=== PATIENT | male | born 1970 | race American Indian/Alaskan Native ===

== ENCOUNTER 2016-05-21 13:08 | Emergency (ER) | payer MEDICAID ==
--- NOTE | 2016-05-21 14:35 | Emergency Department Report ---
Chief Complaint: High BP Stated Complaint: HIGH BP Time Seen by Provider: 05/21/16 14:29 - HPI History of Present Illness: 46 y/o male complain of headache x 3 days .pt state that he taking blood pressure medication without any relief .pt denies any n/v .pt complain of fatigue.pt complain of left arm pain .denies any injury . - ROS Review of Systems: per HPI - Exam Vital Signs: Vital Signs 05/21/16 14:19 Temperature 98.4 F Pulse Rate 105 H Respiratory 18 Rate Blood Pressure 185/119 O2 Sat by Pulse 98 Oximetry Physical Exam: GENERAL: The patient is well-developed and well-nourished. Patient is in NAD. HENT: Normocephalic. Atraumatic. Patient has moist mucous membranes. Throat: No erythema, swelling or exudates. EYES: Extraocular motions are intact, PERRL NECK: Supple. No meningitic signs are noted. There is no adenopathy noted. CHEST/LUNGS: Clear to auscultation bilaterally. No wheezing, rales or rhonchi noted. There is no respiratory distress noted. HEART/CARDIOVASCULAR: Regular rate and rhythm. Normal S1 S2. No murmurs, rubs , clicks, or gallops. ABDOMEN: Abdomen is soft, nontender.. Bowel sounds normoactive. There is no abdominal distention. Negative rebound tenderness. : Deferred. SKIN: There is no rash. There is no edema. There is no diaphoresis. NEURO: The patient is A&Ox3. The patient has no focal neurologic deficits. MUSCULOSKELETAL: There is no tenderness or deformity. There is no limitation range of motion. PSYCH: Pt has appropriate mood and affect. MSE screening note: Focused history and physical exam performed. Due to findings the following was ordered: ED Disposition for MSE Condition: Stable
[2016-05-21 16:05] LABS: Bilirubin,Urine NEG (Negative); Blood,Urine NEG (Negative); Ketones,Urine NEG (Negative); Leukocyte Esterase,Urine NEG (Negative); Mucus,Urine FEW /HPF; Nitrite,Urine NEG (Negative); Urobilinogen,Urine < 2.0 mg/dL (<2.0)
[2016-05-21] MEDS ORDERED: MORPHINE IV ONE (16:19)
--- NOTE | 2016-05-21 16:25 | Emergency Department Report ---
HPI - General Chief Complaint: High BP Time Seen by Provider: 05/21/16 16:04 - HPI HPI: This is a 46-year-old Afro-[place] male who presents to the emergency department, dropped off by a friend, with complaint of a one-week history of a frontal headache. Patient has also had some uncontrolled blood pressure despite taking his medications compliantly. He says that his primary care doctor switched his blood pressure meds about 1 week ago and it does not seem to be working. He has some associated left arm pain from the shoulder down to the mid forearm but he denies any chest pain, shortness of breath, fever, nausea , vomiting, vision change, slurred speech or any neurological deficits. His been taking some Tylenol for his headache without much relief. Denies any history of AK, CVA, PE/DVT. No recent travel or sick contacts at home. ED Past Medical Hx - Past Medical History Hx Hypertension: Yes Hx Diabetes: Yes (pre diabetic) Hx Arthritis: Yes Hx Headaches / Migraines: Yes Additional medical history: degenerative disc disease - Surgical History Additional Surgical History: left total knee replacement. c6 c7 appliance - Social History Smoking Status: Current Every Day Smoker Substance Use Type: Alcohol - Medications Home Medications: Home Medications Medication Instructions Recorded Confirmed Last Taken Type Calcium Carbonate [Calcium] 500 mg PO QDAY 04/06/13 05/21/16 3 Months Ago History Hydrocodone Bit/Acetaminophen 1 each PO TID PRN 04/06/13 05/21/16 3 Months Ago History [Lortab 7.5-500 Tablet] Lisinopril [Zestril] 5 mg PO QDAY 04/06/13 05/21/16 3 Months Ago History Butalbit/Acetamin/Caff/Codeine 1 each PO Q4-6H PRN #14 capsule 10/26/1310/04/15 Rx [Fioricet-Cod 59-294-12-30 Cap] predniSONE [Deltasone] 50 mg PO QDAY #4 tab 05/17/14 05/21/16 3 Months Ago Rx traMADol [Ultram] 50 mg PO Q6HR PRN #20 tablet 08/30/14 05/21/16 3 Months Ago Rx methOCARBAMOL [Robaxin TAB] 500 mg PO BID #20 tab 06/05/15 05/21/16 3 Months Ago Rx ED Review of Systems ROS: Stated complaint: HIGH BP Other details as noted in HPI Comment: All other systems reviewed and negative Constitutional: denies: chills, fever Eyes: denies: eye pain, eye discharge, vision change ENT: denies: ear pain, throat pain Respiratory: denies: cough, shortness of breath, wheezing Cardiovascular: denies: chest pain, palpitations Gastrointestinal: denies: abdominal pain, nausea, diarrhea Genitourinary: denies: urgency, dysuria Musculoskeletal: denies: back pain, joint swelling Skin: denies: rash, lesions Neurological: headache. denies: weakness, numbness, paresthesias Physical Exam - Physical Exam Vital Signs: Vital Signs 05/21/16 14:19 Temperature 98.4 F Pulse Rate 105 H Respiratory 18 Rate Blood Pressure 185/119 O2 Sat by Pulse 98 Oximetry Physical Exam: GENERAL: The patient is well-developed well-nourished. HEENT: Normocephalic. Atraumatic. Extraocular motions are intact. Patient has moist mucous membranes. Pupils equal reactive to light bilaterally. No nystagmus. NECK: Supple. Trachea is midline. CHEST/LUNGS: Clear to auscultation. There is no respiratory distress noted. HEART/CARDIOVASCULAR: Regular. There is no tachycardia. There is no gallop rub or murmur. ABDOMEN: Abdomen is soft, nontender. Patient has normal bowel sounds. There is no abdominal distention. SKIN: There is no rash. There is no edema. There is no diaphoresis. NEURO: The patient is awake, alert, and oriented. The patient is cooperative. The patient has no focal neurologic deficits. The patient has normal speech. Cranial nerves II through XII grossly intact. No pronator drift. MUSCULOSKELETAL: Mild tenderness to palpation along the right de souza but no obvious deformity. There is no limitation range of motion. There is no evidence of acute injury. Muscle strength 5 out of 5 for upper and lower extremity bilaterally. ED Course Vital Signs 05/21/16 14:19 Temperature 98.4 F Pulse Rate 105 H Respiratory 18 Rate Blood Pressure 185/119 O2 Sat by Pulse 98 Oximetry ED Medical Decision Making - Lab Data Result diagrams: 05/21/16 16:31 05/21/16 16:31 - EKG Data -: EKG Interpreted by Me EKG shows normal: sinus rhythm, axis, intervals, QRS complexes (Q waves to the inferior leads), ST-T waves Rate: normal - EKG Data When compared to previous EKG there are: previous EKG unavailable Interpretation: other (sinus rhythm, Q waves to the inferior leads) - Radiology Data Radiology results: report reviewed, image reviewed interpreted by me: X-ray of the right tibia and fibula does not show any fracture or dislocation or any acute process. CT of the head does not show any acute process including no hemorrhage, mass, shift, diffuse edema or skull fracture. - Medical Decision Making 46-year-old male presents to the emergency department from his PCPs office with complaint of uncontrolled blood pressure, some tachycardia and a one week long history of a headache. CT of the head was done that does not show any bleed, shift, mass or any acute process. Patient's vitals do show very elevated blood pressure but there is only a mild amount of tachycardia through triage and patient is afebrile. He does not display any focal, motor or sensory deficits. Cranial nerves intact. No signs of stroke. Patient's EKG does not show any signs of ST elevation AK or dysrhythmia. The rest the patient's labs and unremarkable. He was given 1 dose of pain medication which did help with his headache, and a few doses of blood pressure medications which brought his blood pressure down to a much more reasonable level. After the blood pressure came down the patient's that he started feeling better. Patient admitted that he had drank a few energy and/or caffeinated sports drinks that may have been part of his issues. We discussed staying with foods are high in salt and caffeinated products. He will follow-up with Dr. Quezada in the next few days and Dr. Quezada has been updated about the patient's ED course. - Differential Diagnosis hypertensive urgency/crisis, migraine, brain bleed, tension headache Critical Care Time: No Critical care attestation.: If time is entered above; I have spent that time in minutes in the direct care of this critically ill patient, excluding procedure time. ED Disposition Clinical Impression: Hypertensive urgency Headache Qualifiers: Headache type: unspecified Headache chronicity pattern: episodic headache Intractability: not intractable Qualified Code(s): R51 - Headache Disposition: DISCHARGED TO HOME OR SELFCARE Is pt being admited?: No Condition: Stable Instructions: Hypertension (ED), Acute Headache (ED) Additional Instructions: Please follow-up with your primary care doctor in the next few days. Continue with your blood pressure regimen. Try to stay away from foods that are high in salt and caffeinated products to assist with your elevated blood pressure. Return to the emergency department with any worsening of your symptoms or any acute distress. Referrals: EDDIE QUEZADA MD [Staff Physician] - 3-5 Days Time of Disposition: 18:30
[2016-05-21 16:46] LABS: Eosinophils % (Auto) 3.4 % (0.0-4.3); Hematocrit 43.9 % (35.5-45.6); Hemoglobin 14.4 gm/dl (11.8-15.2); Mean Corpuscular HGB Conc 33 % (32-34); Mean Corpuscular Hemoglobin 29 pg (28-32); Mean Corpuscular Volume 87 fl (84-94); Platelet Count 213 K/mm3 (140-440); Red Blood Count 5.05 M/mm3 (3.65-5.03); Red Cell Distribution Width 13.9 % (13.2-15.2); White Blood Count 6.7 K/mm3 (4.5-11.0)
[2016-05-21 17:08] LABS: Creatine Kinase MB 4.8 ng/mL (0.0-4.0)
[2016-05-21 17:09] LABS: Alanine Aminotransferase 28 units/L (7-56); Albumin 3.7 g/dL (3.9-5); Albumin/Globulin Ratio 1.1 %; Alkaline Phosphatase 94 units/L (35-129); Anion Gap 19 mmol/L; BUN/Creatinine Ratio 15.55; Bilirubin,Total 0.3 mg/dL (0.1-1.2); Blood Urea Nitrogen 14 mg/dL (9-20); Calcium 8.8 mg/dL (8.4-10.2); Carbon Dioxide 24 mmol/L (22-30); Chloride 98.3 mmol/L (98-107); Creatine Kinase 865 units/L (55-170); Glucose 104 mg/dL (75-100); Potassium 3.7 mmol/L (3.6-5.0); Sodium 138 mmol/L (137-145)
--- NOTE | 2016-05-21 17:14 | Cat Scan Report ---
FINAL REPORT PROCEDURE: CT HEAD/BRAIN WO CON TECHNIQUE: Computerized tomography of the head was performed without contrast material. 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 FINDINGS: The visualized portions of the paranasal sinuses are clear. Mastoid air cells are clear. There is no calvarial fracture. There is no hydrocephalus. No acute intracranial hemorrhage or mass effect is seen. There is no evidence of acute CVA. IMPRESSION: No abnormalities are seen.
[2016-05-21] MEDS ORDERED: NORMODYNE IV ONE ×2 (17:19→18:43)
[2016-05-21] MEDS ORDERED: APRESOLINE IV ONE (19:27)
[2016-05-21 19:52] VITALS: BP 148/89
--- NOTE | 2016-05-22 08:32 | XRay Report ---
Right tibia: There is generalized edema of the soft tissues. There is focal swelling that is more accentuated over the lateral malleolus. Scattered small phleboliths are identified in the distal leg. There are no fractures and no displacements. The bones appear relatively well-mineralized. There are some scattered hypertrophic changes involving the ankle joint. Impressions: Nonspecific swelling. No acute bony findings.
== END 2016-05-21 19:55 | disposition home or self-care (01) ==
LOC: ED 13:08
DX: I10 Essential (primary) hypertension (principal); R51 Headache
CPT/HCPCS: 36415; 70450; 73590; 80053; 81001; 82550; 82553; 84484; 85025; 96374; 96375; 96376; 99285; J0360; J2270; 93005; 93010

== ENCOUNTER 2019-02-21 03:36 | Inpatient (IN) | payer MEDICAID ==
[2019-02-21] MEDS ORDERED: MORPHINE IV ONE ×2 (04:10→05:23)
--- NOTE | 2019-02-21 04:12 | Emergency Department Report ---
ED Chest Pain HPI - General Chief Complaint: Chest Pain Stated Complaint: CHEST PAIN Time Seen by Provider: 02/21/19 03:49 Source: patient, EMS Mode of arrival: Stretcher Limitations: No Limitations - History of Present Illness Initial Comments: 49-year-old -[place] male presents to the emergency department via EMS from home with complaint of some sharp midsternal chest pain that has been going on since Friday, 24 hours ago. At first it went away but he says that it "came right back." It is associated with some mild shortness of breath. He denies any fever, nausea, vomiting, back pain or diaphoresis. He is a tobacco smoker but denies any illicit drug use. He has not taken anything for her symptoms prior to presentation. He has a past medical history of hypertension and "stomach problems." He goes to [facility] for primary care. 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 - Related Data Home Medications Medication Instructions Recorded Confirmed Last Taken Calcium Carbonate [Calcium] 500 mg PO QDAY 04/06/13 11/04/16 3 Months Ago ~02/19/16 Previous Rx's Medication Instructions Recorded Last Taken Type Butalbit/Acetamin/Caff/Codeine 1 each PO Q4-6H PRN #14 capsule 10/26/13 10/04/15 Rx [Fioricet/Codeine 87-181-62-30] Aspirin EC [Halfprin EC] 81 mg PO QDAY #30 tablet 11/07/16 Unknown Rx AtorvaSTATin [Lipitor] 20 mg PO QHS #30 tab 11/07/16 Unknown Rx Clopidogrel [Plavix] 75 mg PO QDAY #30 tablet 11/07/16 Unknown Rx ISOSORBIDE MONOnitrate [Imdur ER] 30 mg PO DAILY #30 tab.er.24h 11/07/16 Unknown Rx Lisinopril [Zestril TAB] 40 mg PO QDAY #30 tablet 11/07/16 Unknown Rx Metoprolol [Lopressor TAB] 50 mg PO BID #60 tablet 11/07/16 Unknown Rx Allergies Allergy/AdvReac Type Severity Reaction Status Date / Time aspirin AdvReac Nausea Verified 09/09/13 08:02 Heart Score - HEART Score History: Slightly suspicious EKG: Normal Age: 45-65 Risk factors: 1-2 risk factors Troponin: < normal limit HEART Score: 2 - Critical Actions Critical Actions: 0-3 pts:0.9-1.7%risk of adverse cardiac event.Candidate for discharge ED Review of Systems ROS: Stated complaint: CHEST PAIN Other details as noted in HPI Comment: All other systems reviewed and negative Constitutional: denies: chills, fever Eyes: denies: eye pain, vision change ENT: denies: ear pain, throat pain Respiratory: shortness of breath. denies: cough Cardiovascular: chest pain. denies: palpitations Gastrointestinal: denies: abdominal pain, vomiting Genitourinary: denies: dysuria, discharge Musculoskeletal: denies: back pain, arthralgia Skin: denies: rash, lesions Neurological: denies: headache, weakness ED Past Medical Hx - Past Medical History Hx Hypertension: Yes Hx Heart Attack/AMI: Yes (2017) Hx Congestive Heart Failure: No Hx Diabetes: Yes (pre diabetic) Hx Deep Vein Thrombosis: Yes Hx Arthritis: Yes Hx Headaches / Migraines: Yes Hx Asthma: No Hx COPD: No Additional medical history: degenerative disc disease, AF - Surgical History Additional Surgical History: left total knee replacement. c6 c7 appliance. knee surgery scope - Social History Smoking Status: Current Every Day Smoker - Medications Home Medications: Home Medications Medication Instructions Recorded Confirmed Last Taken Type Calcium Carbonate [Calcium] 500 mg PO QDAY 04/06/13 11/04/16 3 Months Ago History ~02/19/16 Butalbit/Acetamin/Caff/Codeine 1 each PO Q4-6H PRN #14 capsule 10/26/13 11/04/16 10/04/15 Rx [Fioricet/Codeine 95-136-21-30] Aspirin EC [Halfprin EC] 81 mg PO QDAY #30 tablet 11/07/16 Unknown Rx AtorvaSTATin [Lipitor] 20 mg PO QHS #30 tab 11/07/16 Unknown Rx Clopidogrel [Plavix] 75 mg PO QDAY #30 tablet 11/07/16 Unknown Rx ISOSORBIDE MONOnitrate [Imdur ER] 30 mg PO DAILY #30 tab.er.24h 11/07/16 Unknown Rx Lisinopril [Zestril TAB] 40 mg PO QDAY #30 tablet 11/07/16 Unknown Rx Metoprolol [Lopressor TAB] 50 mg PO BID #60 tablet 11/07/16 Unknown Rx ED Physical Exam - General Limitations: No Limitations - Other Other exam information: GENERAL: The patient is well-developed well-nourished. HENT: Normocephalic. Atraumatic. Patient has moist mucous membranes. EYES: Extraocular motions are intact. NECK: Supple. Trachea is midline. CHEST/LUNGS: Clear to auscultation. There is no respiratory distress noted. HEART/CARDIOVASCULAR: Regular. There is no tachycardia. There is no murmur. ABDOMEN: Abdomen is soft, nontender. Patient has normal bowel sounds. There is no abdominal distention. SKIN: Skin is warm and dry. NEURO: The patient is awake, alert, and oriented. The patient is cooperative. The patient has no focal neurologic deficits. Normal speech. MUSCULOSKELETAL: There is no tenderness or deformity. There is no evidence of acute injury. ED Course Vital Signs 02/21/19 02/21/19 02/21/19 03:49 03:57 04:00 Temperature 98.2 F Pulse Rate 67 Respiratory 24 24 Rate Blood Pressure 134/95 O2 Sat by Pulse 99 Oximetry KENIA score - Kenia Score Age > 65: (0) No Aspirin use within the Past 7 Days: (0) No 3 or more CAD Risk Factors: (1) Yes 2 or more Angina events in past 24 hrs: (0) No Known CAD with more than 50% Stenosis: (0) No Elevated Cardiac Markers: (0) No ST Deviation Greater than 0.5mm: (1) Yes KENIA Score: 2 ED Medical Decision Making - Lab Data Result diagrams: 02/21/19 03:50 02/21/19 03:50 - EKG Data -: EKG Interpreted by [facility] EKG shows normal: sinus rhythm, axis, intervals, QRS complexes, ST-T waves Rate: normal - EKG Data When compared to previous EKG there are: previous EKG unavailable Interpretation: normal EKG - Radiology Data Radiology results: image reviewed interpreted by hi: Chest x-ray does not show any acute process. There are no pleural effusions, obvious pneumonia and there is no pneumothorax. - Medical Decision Making This patient presents with sharp midsternal to left-sided chest pain that started yesterday but worsened today. EKG does not show any signs of ST elevation [place]. Labs are unremarkable so far including a negative troponin and negative d-dimer. Chest x-ray does not show any pleural effusions, pneumothorax, pneumonia, focal consolidation, or any other acute process. The patient has received morphine and sublingual nitroglycerin 3 without any relief. He does have a history significant for coronary artery disease. For all these reasons, the patient will be admitted to the hospital for further evaluation and treatment and was accepted for admission by the hospitalist, Dr. Ulloa. - Differential Diagnosis [place], PE, Costochondritis, Pneumonia Critical Care Time: No Critical care attestation.: If time is entered above; I have spent that time in minutes in the direct care of this critically ill patient, excluding procedure time. ED Disposition Clinical Impression: Acute chest pain, Angina at rest, History of coronary artery disease Disposition: OP ADMIT IP TO THIS HOSP Is pt being admited?: Yes Condition: Fair Instructions: Chest Pain (ED), Angina (ED) Referrals: PRIMARY CARE, [Referring] - 3-5 Days Time of Disposition: 05:26
[2019-02-21] MEDS ORDERED: ZOFRAN ONE (04:15)
[2019-02-21 04:24] LABS: Basophils % (Auto) 0.6 % (0.0-1.8); Eosinophils # (Auto) 0.3 K/mm3 (0.0-0.4); Eosinophils % (Auto) 3.2 % (0.0-4.3); Hematocrit 40.8 % (35.5-45.6); Hemoglobin 13.7 gm/dl (11.8-15.2); Lymphocytes % (Auto) 46.8 % (13.4-35.0); Mean Corpuscular HGB Conc 34 % (32-34); Mean Corpuscular Volume 89 fl (84-94); Monocytes # (Auto) 0.6 K/mm3 (0.0-0.8); Monocytes % (Auto) 6.7 % (0.0-7.3); Platelet Count 262 K/mm3 (140-440); Red Blood Count 4.59 M/mm3 (3.65-5.03); Red Cell Distribution Width 14.1 % (13.2-15.2)
--- NOTE | 2019-02-21 04:24 | XRay Report ---
CHEST 1 VIEW INDICATION / CLINICAL INFORMATION: CP. Chest pain COMPARISON: None available. FINDINGS: SUPPORT DEVICES: None. HEART / MEDIASTINUM: No significant abnormality. LUNGS / PLEURA: No significant pulmonary or pleural abnormality. No pneumothorax. ADDITIONAL FINDINGS: No significant additional findings. IMPRESSION: 1. No acute findings. Signer Name: Kirk Wright MD Signed: 02/21/2019 4:20 AM Workstation Name: [email or web address]
[2019-02-21 04:28] LABS: Alanine Aminotransferase 18 units/L (7-56); Albumin 3.7 g/dL (3.9-5); BUN/Creatinine Ratio 14; Blood Urea Nitrogen 10 mg/dL (9-20); Calcium 8.5 mg/dL (8.4-10.2); Hemolysis Index 12
[2019-02-21] MEDS ORDERED: NITROSTAT SL ONE (04:57)
[2019-02-21] MEDS: NITROSTAT SL PRN ×3 (05:10→05:20)
[2019-02-21] MEDS ORDERED: TORADOL IV ONE (05:23)
[2019-02-21] MEDS ORDERED: D50W (25GM) Syringe IV PRN (06:49)
[2019-02-21] MEDS ORDERED: ZOFRAN IV PRN (06:50)
[2019-02-21] MEDS ORDERED: NITROSTAT SL PRN (06:52)
[2019-02-21] MEDS ORDERED: ZOFRAN IV ONE (07:14)
[2019-02-21] MEDS: HumuLIN R SUB-Q SCH ×3 (07:59→15:24)
--- NOTE | 2019-02-21 08:30 | History and Physical Report ---
CHIEF COMPLAINT: Chest pain. HISTORY OF PRESENT ILLNESS: The patient is a 49-year-old male who has been having sharp midsternal chest pain. Pain also extends to the precordial area and was associated with shortness of breath, diaphoresis, nausea and vomiting but no dizziness and the patient denied history of cough or fever and presented for evaluation. PAST MEDICAL HISTORY: Pertinent for coronary artery disease, hypertension and diet-controlled diabetes mellitus. Also, the patient has past medical history of deep vein thrombosis, arthritis, migraine headache, atrial fibrillation. PAST SURGICAL HISTORY: Pertinent for left total knee replacement, C6-C7 surgery and knee scoping. FAMILY HISTORY: Reviewed and noncontributory. SOCIAL HISTORY: The patient smokes cigarette, does not use illicit drugs and it is not clear whether the patient drinks alcohol. MEDICATIONS: The patient is on calcium carbonate 500 mg daily, Fioricet/codeine 1 by mouth every 4-6 hours as needed for pain, enteric-coated aspirin 81 mg by mouth daily, Lipitor 20 mg by mouth at bedtime, Plavix 75 mg by mouth daily, isosorbide mononitrate 30 mg by mouth daily, lisinopril 40 mg by mouth daily, metoprolol, Lopressor 50 mg by mouth daily. ALLERGIES: The patient is allergic to ASPIRIN. REVIEW OF SYSTEMS: CONSTITUTIONAL: There is no fever, no chills. Diaphoresis is present. HEENT: There is no headache or sore throat. CARDIOVASCULAR SYSTEM: Chest pain is present. No orthopnea. RESPIRATORY SYSTEM: Shortness of breath is present. There is no cough. GASTROINTESTINAL SYSTEM: There is nausea and vomiting, but no abdominal pain, diarrhea or constipation. NEUROLOGICAL SYSTEM: There is no numbness, no dizziness, no altered mental status. MUSCULOSKELETAL SYSTEM: There is no joint pain or swelling. DERMATOLOGICAL SYSTEM: There is no skin rash or itching. GENITOURINARY SYSTEM: There is no dysuria, hematuria or flank pain. Rest of system review is normal. PHYSICAL EXAMINATION: GENERAL: At the time of exam, the patient was found to be alert, oriented x 3 and not in acute distress. VITAL SIGNS: Shows temperature of 98.2 degrees Fahrenheit, pulse of 67, respirations 24, blood pressure 134/95, O2 sat of 99% on room air. HEENT: Show pupils to be equal, round, reactive to light and accommodating. Extraocular muscles are intact. NECK: Supple, with no JVD or carotid bruit. CARDIOVASCULAR SYSTEM: Showed normal first and second heart sounds, with no gallops or murmurs. RESPIRATORY SYSTEM: Show good air entry on both sides of the lungs, with no abnormal breath sounds. GASTROINTESTINAL SYSTEM: Show abdomen to be full, soft, nontender, with no organomegaly or rigidity. NEUROLOGIC: Shows no focal deficit. MUSCULOSKELETAL SYSTEM: Show no joint swelling or tenderness. DERMATOLOGICAL SYSTEM: Show no skin rash. GENITOURINARY SYSTEM: Showing no costovertebral angle tenderness. PERTINENT LABORATORY AND IMAGING STUDIES: The patient has CBC done with normal white count, normal hemoglobin and normal hematocrit with CBC differential showing elevated lymphocyte count of 46.8%. The patient's coagulation studies were unremarkable. The patient's chemistry showed low potassium level of 3.4 with remaining chemistry being unremarkable. The patient's imaging studies showed no acute abnormality on chest x-ray. DIAGNOSIS: Chest pain. PLAN OF CARE: 1. The patient will be placed on observation on telemetry. 2. The patient will have serial cardiac enzymes involving troponin, total CK and CK-MB checked every 6 hours x 2 more levels. 3. The patient will be n.p.o. for possible Lexiscan stress test this morning. 4. The patient will be on IV morphine 2 mg every 3 hours as needed for pain and IV Zofran 4 mg every 8 hours for nausea and vomiting. 5. The patient will be on nitro paste half inch to anterior chest wall q.i.d. and will be on sublingual nitroglycerin 0.4 mg every 5 minutes as needed for breakthrough chest pain. 6. The patient will be on oxygen by nasal cannula at 2 liters per minute. 7. The patient will be on Tylenol 650 mg by mouth every 4 hours for fever and headache and will be on heparin 5000 units subcutaneous q.12 for DVT prophylaxis. JOB# [id number] OCN/NTS
[2019-02-21] MEDS: NITRO-BID 2% TP SCH ×3 (09:56→19:15)
[2019-02-21] MEDS ORDERED: HEPARIN SUB-Q SCH (10:00)
--- NOTE | 2019-02-21 11:16 | Event Note ---
Date: 02/21/19 patient seen and examined admitted for chest pain, plan for stress test funmilayo am, cardiology consult No active chest pain now will start on therapeutic dose of lovenox, asp, statin for elevated trop/NSTEMI serial EKG cont current mx and plan
[2019-02-21] MEDS ORDERED: K-DUR PO NR (11:17)
[2019-02-21 11:28] LABS: Chol/HDL Ratio 3.13 %
[2019-02-21] MEDS: MORPHINE IV PRN ×2 (13:01→20:05)
[2019-02-21 13:47] LABS: Creatine Kinase MB 26.4 ng/mL (0.0-4.0)
[2019-02-21] MEDS: ASPIRIN PO SCH (16:07)
[2019-02-21] MEDS: TYLENOL PO PRN (18:38)
[2019-02-21 19:44] LABS: Creatine Kinase MB 34.9 ng/mL (0.0-4.0)
[2019-02-21] MEDS: ENOXAPARIN SUB-Q SCH (21:21)
[2019-02-22] MEDS: NITRO-BID 2% TP SCH ×2 (06:07→21:06)
[2019-02-22] MEDS ORDERED: LEXISCAN IV ONE ×2 (08:14→08:23)
--- NOTE | 2019-02-22 09:41 | Consultation ---
History of Present Illness Consult date: 02/22/19 Requesting physician: CARL TSANG Consult reason: elevated troponin History of present illness: The pt is a 49 YO male with a past medical history of CAD s/p STEMI with PCI to RCA in 2016, HTN, diabetes (diet controlled), PVD s/p LLE stenting in 2015, current tobacco smoker. He is regularly followed by [facility] cardiology. He presented with complaints of chest pain since yesterday morning. He states that the chest pain awoke him from sleep at 2:30AM yesterday morning. He describes his chest pain as a constant midsternal crushing pain which feels similar to the pain he experienced with his STEMI in 11/2016. Pt reports compliance with his home medication regimen, including ASA 81 and Plavix. His chest pain was associated with SOB, diaphoresis and a bout of vomiting in the ambulance. He was given nitroglycerin and his chest pain has currently resolved. He is noted to have elevated troponins c/w NSTEMI type II and abnormal ECG. Echo done 11/2016 showed EF 50-55%, mild to mod LVH, mild to mod MR. LHC 11/2016 showed the left coronary system was free of significant disease. The right coronary artery was completely occluded at its ostium. There was evidence of extensive intracoronary thrombus. Successful angioplasty and stenting with deployment of a 4.0 mm bare metal stent across the primary lesion extending from the ostium of the vessel. Following this, export catheter thrombectomy was applied with removal of extensive thrombus from the vessel. Past History Past Medical History: CAD, diabetes, hypertension, PVD Social history: smoking. denies: alcohol abuse Medications and Allergies Allergies Allergy/AdvReac Type Severity Reaction Status Date / Time aspirin AdvReac Nausea Verified 09/09/13 08:02 Home Medications Medication Instructions Recorded Confirmed Last Taken Type Calcium Carbonate [Calcium] 500 mg PO QDAY 04/06/13 11/04/16 3 Months Ago History ~02/19/16 Butalbit/Acetamin/Caff/Codeine 1 each PO Q4-6H PRN #14 capsule 10/26/13 11/04/16 10/04/15 Rx [Fioricet/Codeine [id number]] Aspirin EC [Halfprin EC] 81 mg PO QDAY #30 tablet 11/07/16 Unknown Rx AtorvaSTATin [Lipitor] 20 mg PO QHS #30 tab 11/07/16 Unknown Rx Clopidogrel [Plavix] 75 mg PO QDAY #30 tablet 11/07/16 Unknown Rx ISOSORBIDE MONOnitrate [Imdur ER] 30 mg PO DAILY #30 tab.er.24h 11/07/16 Unknown Rx Lisinopril [Zestril TAB] 40 mg PO QDAY #30 tablet 11/07/16 Unknown Rx Metoprolol [Lopressor TAB] 50 mg PO BID #60 tablet 11/07/16 Unknown Rx Active Meds: Active Medications Acetaminophen (Tylenol) 650 mg PO Q4H PRN PRN Reason: Headache Last Admin: 02/21/19 18:38 Dose: 650 mg Documented by: Aspirin (Aspirin) 325 mg PO QDAY [facility] Last Admin: 02/21/19 16:07 Dose: 325 mg Documented by: Atorvastatin Calcium (Lipitor) 40 mg PO QHS [facility] Last Admin: 02/21/19 21:21 Dose: 40 mg Documented by: Dextrose (D50w (25gm) Syringe) 0 ml IV Q30MIN PRN PRN Reason: Hypoglycemia Enoxaparin Sodium (Lovenox) 100 mg SUB-Q Q12H [facility] Last Admin: 02/21/19 21:21 Dose: 100 mg Documented by: Sodium Chloride (Nacl 0.9% 500 Ml) 500 mls @ 50 mls/hr IV DIRECT [facility] Stop: 02/22/19 19:59 Morphine Sulfate (Morphine) 2 mg IV Q3H PRN PRN Reason: Pain, Moderate (4-6) Last Admin: 02/21/19 20:05 Dose: 2 mg Documented by: Nitroglycerin (Nitro-Bid 2%) 0.5 inch TP QIDNTG [facility]; Protocol Last Admin: 02/22/19 06:07 Dose: Not Given Documented by: Nitroglycerin (Nitrostat) 0.4 mg SL .Q5MIN PRN PRN Reason: Chest Pain Last Admin: 02/21/19 05:20 Dose: 0.4 mg Documented by: Ondansetron HCl (Zofran) 4 mg IV Q8H PRN PRN Reason: Nausea And Vomiting Review of Systems Constitutional: no weight loss, no weight gain, no fever, no chills, no sweats Ears, nose, mouth and throat: no ear pain, no nose pain, no sinus pressure, no sinus pain Cardiovascular: chest pain, shortness of breath, no orthopnea, no palpitations, no rapid/irregular heart beat, no edema, no syncope, no lightheadedness, no paroxysmal nocturnal dyspnea, no high blood pressure, no leg edema Respiratory: shortness of breath, no cough, no dyspnea on exertion, no congestion, no wheezing, no pain on inspiration Gastrointestinal: no abdominal pain, no nausea, no vomiting, no diarrhea, no change in bowel habits Genitourinary Male: no dysuria, no hematuria, no flank pain, no discharge, no urinary frequency, no urinary hesitancy Musculoskeletal: no neck stiffness, no neck pain, no shooting arm pain, no arm numbness/tingling, no low back pain, no shooting leg pain Integumentary: no rash, no pruritis, no redness, no sores, no wounds Neurological: no head injury, no paralysis, no weakness, no parathesias, no numbness, no tingling, no seizures, no syncope Psychiatric: no anxiety Endocrine: no cold intolerance, no heat intolerance Hematologic/Lymphatic: no easy bruising, no easy bleeding Allergic/Immunologic: no urticaria, no wheezing Physical Examination Vital Signs Resp 24 02/21/19 03:49 General appearance: no acute distress HEENT: Positive: PERRL, Normocephaly, Mucus Membranes Moist Neck: Positive: neck supple, trachea midline Cardiac: Positive: Reg Rate and Rhythm, S1/S2 Lungs: Positive: clear to auscultation Neuro: Positive: Grossly Intact Abdomen: Negative: Tender Skin: Negative: Rash, Wound Musculoskeletal: No Pain Extremities: Absent: edema Results 02/21/19 03:50 02/21/19 03:50 Cardiac Enzymes 02/21/19 02/21/19 Range/Units 12:13 18:26 CK-MB (CK-2) 26.4 H 34.9 H (0.0-4.0) ng/mL Lipids 02/21/19 Range/Units 10:15 Triglycerides 85 (2-149) mg/dL Cholesterol 94 (50-199) mg/dL HDL Cholesterol 30 L (40-59) mg/dL Cholesterol/HDL Ratio 3.13 % - Imaging and Cardiology Echo: pending, report reviewed (11/2016 showed EF 50-55%, mild to mod LVH, mild to mod MR.) Cardiac cath: pending, report reviewed (11/2016 showed the left coronary system was free of significant disease. The right coronary artery was completely occluded at its ostium. There was evidence of extensive intracoronary thrombus. Successful angioplasty and stenting with deployment of a 4.0 mm bare metal stent across the primary lesion extending from the ostium of the vessel. Following this, export catheter thrombectomy was applied with removal of extensive thrombus from the vessel. ) EKG: report reviewed, image reviewed EKG interpretations - Telemetry EKG Rhythm: Sinus Rhythm - EKG Sinus rhythms and dysrhythmias: sinus rhythm Repolarization changes or abnormalities: ST or T wave suggestive of ischemia Assessment and Plan Coronary angiography recommended in setting of NSTEMI type I. Indications, potential risks and benefits of LHC reviewed with pt and he is agreeable to proceed with LHC today. Await findings. The patient has been seen in conjunction with Dr. QUIANA Salazar who agrees with the assessment and plan of care. - Patient Problems (1) NSTEMI (non-ST elevated myocardial infarction) Current Visit: Yes Status: Acute (2) HTN (hypertension) Current Visit: Yes Status: Chronic (3) CAD (coronary artery disease) Current Visit: Yes Status: Chronic (4) Stented coronary artery Current Visit: Yes Status: Chronic (5) Diabetes Current Visit: Yes Status: Chronic (6) Tobacco use Current Visit: Yes Status: Chronic (7) PVD (peripheral vascular disease) Current Visit: Yes Status: Chronic
[2019-02-22] MEDS ORDERED: HEPARIN 10,000 UNITS/10 ML ONE ×2 (09:53→10:56)
[2019-02-22] MEDS ORDERED: HEPARIN/NS 5000 UNIT/500ML(CATH LAB) 1,000 ML IR ONE (09:53)
[2019-02-22] MEDS ORDERED: CALAN ONE (09:53)
[2019-02-22] MEDS ORDERED: XYLOCAINE 2% INFILTRATI ONE (09:54)
[2019-02-22] MEDS ORDERED: NITROGLYCERIN SYRINGE 3 ML ONE (09:54)
[2019-02-22] MEDS ORDERED: NACL 0.9% 500 ML 500 ML IV SCH (10:00)
[2019-02-22] MEDS: NACL 0.9% 500 ML 500 ML IV SCH ×2 (10:05→10:38)
[2019-02-22] MEDS ORDERED: HEPARIN/NS 5000 UNIT/500ML(CATH LAB) 500 ML IR ONE (10:30)
[2019-02-22] MEDS ORDERED: ECOTRIN PO ONE (10:30)
[2019-02-22] MEDS ORDERED: VERSED ONE (10:30)
[2019-02-22] MEDS ORDERED: SUBLIMAZE ONE (10:30)
[2019-02-22 10:34] LABS: INR 1.01 (0.87-1.13)
[2019-02-22] MEDS ORDERED: APRESOLINE ONE (11:22)
[2019-02-22] MEDS ORDERED: PLAVIX ONE (11:22)
[2019-02-22] MEDS ORDERED: ALUM-MAG HYDROX-SIMETH 200-200-20MG/5ML ONE (11:24)
--- NOTE | 2019-02-22 12:05 | Event Note ---
Date: 02/22/19 S/p [facility] with PCI to LAD via RRA, cont standard post-pci care. Cont ASA 325 and plavix. Initiate lopressor and lisinopril. Await echo. Edvin NAGY NP / DR. NICOLE
--- NOTE | 2019-02-22 13:03 | Cardiac Catherization Report ---
CATHETERIZATION AND CORONARY INTERVENTION REPORT HISTORY: The patient is a 49-year-old -[place] gentleman with history of hypertension, known coronary artery disease with coronary stenting of the RCA performed in 2017 at outside hospital presents with prolonged episode of chest pain, very severe, woke up while he was sleeping. Subsequently, he presented to the Emergency Room and was monitored. His troponins are mildly elevated suggestive of non-STEMI. Because of this the patient was brought to the catheterization laboratory for diagnostic purpose. The patient is aware of the procedure, potential complications and alternatives of therapy available. DESCRIPTION OF PROCEDURE: The patient was brought to the catheterization laboratory in a fasting condition. The patient was evaluated for moderate sedation and was felt to be appropriate candidate for moderate sedation. The patient subsequently was prepared in a standard sterile fashion, right radial artery, right upper limb was prepared with sterile solution was chlorhexidine and subsequently local anesthesia was given in the right wrist area and right radial artery puncture was made using 21-gauge arterial needle. Subsequently, 5-Iranian slender sheath was introduced. The patient received IV Versed and fentanyl after being evaluated for moderate sedation starting at 10:37 a.m. Subsequently, 6-Iranian diagnostic catheter was used to obtain the angiograms of the left coronary artery in multiple views followed by angiograms of the right coronary artery and left ventriculogram done in QUINONES projection using hand injection. At the end of the procedure, it was felt that the patient would benefit from intervention of the mid LAD and procedure was converted into interventional procedure. Diagnostic catheterization findings are as follows: Aortic pressure is 200/107, left ventricular pressure 200/20. No gradient across the aortic valve. Estimated ejection fraction 55%. Left ventriculogram done in QUINONES projection showed normal sized left ventricle with normal contractility. End-diastolic, end-systolic volumes are normal. Mitral regurgitation could not be evaluated because of limited amount of dye used. Right coronary artery dominant vessel arises normally from right coronary cusp. There is a widely patent stent starting at the ostium into the proximal part. No significant in-stent restenosis noted. Mid RCA shows moderate 50% lesion. Also mild diffuse irregularities noted in this dominant RCA. Left coronary artery arises normally from left coronary cusp. Left main is very short, immediately dividing into LAD, ramus and circumflex branches. Circumflex artery shows some diffuse mild ectasia and mild calcifications, but no obstructive lesions were noted. Ramus branch shows a total occlusion of a very small caliber branch. Overall, this is a small caliber vessel. Left coronary artery arises normally from the left LAD curves around the apex. This shows mild diffuse calcifications. There is a mid-diagonal branch, which shows severe ostial focal lesion 90% just at the ostium. This is a medium-sized vessel with mild irregularities. Distal to the origin of this diagonal branch, there is a long 70-80% lesion angiographically. This is 12-15 mm in length. This is followed by mid and distal LAD, which shows mild irregularities. COLLATERALS: None. FINAL IMPRESSION: Normal sized left ventricle with normal contractility with widely patent stent in the dominant RCA with moderate mid RCA disease. Ramus branch shows very severe lesion in a very small caliber vessel. LAD shows significant 70-80% mid lesion in addition to very ostial lesion of a medium sized diagonal branch. Considering the above angiographic pictures with clinical picture of non-STEMI, it was felt that culprit lesion in the mid LAD. Hence intervention will be performed of the mid LAD. Interventional procedure of the mid LAD. The patient has indwelling 5-Iranian slender sheath in the right radial artery. The patient received 7500 units of IV heparin. Subsequently, EBU 3.75 guiding catheter was advanced and engaged the left coronary artery. Angiogram showed the previous lesion. A 0.014 inch Mesa-XT guidewire was advanced without difficulty. Lesion was dilated with 2.75 x 15 mm Trek balloon up to 16 atmospheres. Good result was obtained. This is followed by placement of a 3.0 x 18 mm R Morteza Medtronic stent inflated to 16 atmospheres with very good angiographic result. Following this, an intravascular ultrasound catheter was prepared in a standard fashion and was advanced into the LAD. LAD was interrogated from the distal LAD to the proximal LAD. There is good apposition and expansion of the stent with stent diameter at least 3 mm in all directions. No evidence of dissection flap noted. Final angiogram showed no complication from the procedure, namely no evidence of dissection or embolization or perforation noted. KENIA 3 flow was noted pre and post-procedure. The patient was hemodynamically stable throughout the procedure. The patient was monitored for moderate sedation throughout the procedure and the patient at the end of the procedure was noted to be breathing normally, communicating normally and no focal deficits noted. Sedation monitoring ended at 11:15 a.m. Moderate sedation started at 10:37 a.m. and ended at 11:15 a.m. ACT was checked and it was 249 seconds at the end of the procedure. The patient received 600 mg of Plavix during the procedure. Discussed with the patient about harmful effects of smoking and explained the restenosis if he continues to smoke. He understands. FINAL IMPRESSION: Uncomplicated drug-eluting stent placement of the mid LAD with the guidance of IVUS with very good result. No complications noted. KENIA 3 flow was noted pre and post-procedure. The patient will be monitored overnight. The patient's blood pressure is elevated up to 200 mmHg and was given 20 mg of hydralazine at the end of the procedure. JOB# [id number] CHATO/HANNA
[2019-02-22] MEDS: ZESTRIL PO SCH (14:09)
[2019-02-22] MEDS: IMDUR PO SCH (14:09)
[2019-02-22] MEDS: METOPROLOL PO SCH ×2 (14:09→21:29)
--- NOTE | 2019-02-22 15:09 | Progress Note ---
Assessment and Plan / NSTEMI (non-ST elevated myocardial infarction) type 1 S/p [facility] with PCI to LAD via RRA, Cont ASA 325 and plavix. Initiated lopressor and lisinopril. Ordered 2d echo. /HTN (hypertension) cont current meds /CAD (coronary artery disease) cont aspirin, statin, plavix, BB and ACEI / Diabetes consistent carb diet with SSI /Tobacco use, counselled to quit / PVD (peripheral vascular disease), cont asp/statin Brief History: The pt is a 49 YO male with a past medical history of CAD s/p STEMI with PCI to RCA in 2016, HTN, diabetes (diet controlled), PVD s/p LLE stenting in 2015, current tobacco smoker presented with complaints of chest pain. He is noted to have elevated troponins c/w NSTEMI type II and abnormal ECG. Echo done 11/2016 showed EF 50-55%, mild to mod LVH, mild to mod MR. [facility] 11/2016 showed the left coronary system was free of significant disease. Physical exam: GENERAL: well-developed and well-nourished male lying on bed appeared to be in no discomfort. HEENT: Normocephalic. Atraumatic. No conjunctival congestion or icterus. Patient has moist mucous membranes. NECK: Supple. Trachea midline. CHEST/LUNGS: Clear to auscultated bilaterally, breathing nonlabored. No wheezes crackles or rhonchi. HEART/CARDIOVASCULAR: Regular in rate and rhythm. S1 and S2 positive. ABDOMEN: Abdomen is soft, nontender. Patient has normal bowel sounds. SKIN: There is no rash. Warm and dry. NEURO: No focal motor deficit. Follows command. MUSCULOSKELETAL: No joint effusion or tenderness. EXTRIMITY: No edema, no cyanosis or clubbing. PSYCH: Cooperative. Subjective Date of service: 02/22/19 Interval history: Patient seen and examined. Medical records and medication list reviewed. No acute event overnight noted by the RN. Patient denies any difficulty breathing. Patient is tolerating diet. Status post coronary angiogram with PCI today Discussed plan of care at bedside with patient. Objective - Constitutional Vitals: Vital Signs - 12hr 02/22/19 02/22/19 02/22/19 03:38 07:43 09:03 Temperature 98.3 F 98.1 F Pulse Rate 74 75 Respiratory 18 18 Rate Blood Pressure 157/102 180/108 O2 Sat by Pulse 97 Oximetry - Labs CBC & Chem 7: 02/21/19 03:50 02/22/19 08:50 Labs: Abnormal lab results 02/21/19 02/22/19 02/22/19 Range/Units 18:26 08:50 11:26 Activated Clotting Time 246 H (74-137) Total Creatine Kinase 558 H (55-170) units/L CK-MB (CK-2) 34.9 H (0.0-4.0) ng/mL CK-MB (CK-2) Rel Index 6.2 H (0-4) Troponin T 0.151 H* 0.644 H* D (0.00-0.029) ng/mL
[2019-02-22] MEDS: MORPHINE IV PRN (17:45)
[2019-02-22] MEDS: ASPIRIN PO SCH (21:06)
[2019-02-22] MEDS: ENOXAPARIN SUB-Q SCH (21:07)
[2019-02-23] MEDS: TYLENOL PO PRN ×3 (03:39→13:23)
[2019-02-23] MEDS: NITRO-BID 2% TP SCH (06:34)
[2019-02-23 07:34] LABS: Basophils # (Auto) 0.1 K/mm3 (0.0-0.1); Basophils % (Auto) 0.6 % (0.0-1.8); Eosinophils # (Auto) 0.2 K/mm3 (0.0-0.4); Eosinophils % (Auto) 1.9 % (0.0-4.3); Hematocrit 41.3 % (35.5-45.6); Hemoglobin 13.7 gm/dl (11.8-15.2); Lymphocytes # (Auto) 3.1 K/mm3 (1.2-5.4); Lymphocytes % (Auto) 36.4 % (13.4-35.0); Mean Corpuscular HGB Conc 33 % (32-34); Mean Corpuscular Volume 90 fl (84-94); Monocytes # (Auto) 0.7 K/mm3 (0.0-0.8); Monocytes % (Auto) 8.8 % (0.0-7.3); Platelet Count 236 K/mm3 (140-440); Red Cell Distribution Width 13.9 % (13.2-15.2)
--- NOTE | 2019-02-23 07:58 | XRay Report ---
CHEST 1 VIEW INDICATION: Post coronary artery catheterization. COMPARISON: 02/21/2019 at 0355 hours FINDINGS: Support devices: None. Heart: Within normal limits. Lungs/Pleura: No acute air space or interstitial disease. Additional findings: None. IMPRESSION: Normal chest x-ray Signer Name: Mike Crouch Jr, MD Signed: 02/23/2019 7:54 AM Workstation Name: [id number]
[2019-02-23 08:01] LABS: BUN/Creatinine Ratio 18; Blood Urea Nitrogen 14 mg/dL (9-20); Calcium 8.8 mg/dL (8.4-10.2); Creatine Kinase MB 12.7 ng/mL (0.0-4.0); Hemolysis Index 2
[2019-02-23] MEDS: IMDUR PO SCH (09:26)
[2019-02-23] MEDS: ASPIRIN PO SCH (09:27)
[2019-02-23] MEDS: ZESTRIL PO SCH (09:27)
[2019-02-23] MEDS: METOPROLOL PO SCH (09:27)
[2019-02-23] MEDS ORDERED: PLAVIX PO SCH (10:00)
[2019-02-23 11:26] VITALS: BP 115/81
--- NOTE | 2019-02-23 13:43 | Progress Note ---
Assessment and Plan S/p LHC yesterday with PCI to mid LAD. Cont present cardiac management, including ASA 325, plavix, lipitor, lopressor, lisinopril. Echo reviewed - EF 55-60%, mild LVH. Currently stable cardiac status. Pt may discharge home from cardiology standpoint. Smoking cessation strongly encouraged. Recommend pt follow up with his primary latrine cleaner at [place] within 1-2 weeks of discharge. Pt verbalized understanding. The patient has been seen in conjunction with Dr. QUIANA Salazar who agrees with the assessment and plan of care. - Patient Problems (1) NSTEMI (non-ST elevated myocardial infarction) Current Visit: Yes Status: Acute (2) HTN (hypertension) Current Visit: Yes Status: Chronic (3) CAD (coronary artery disease) Current Visit: Yes Status: Chronic (4) Stented coronary artery Current Visit: Yes Status: Chronic (5) Diabetes Current Visit: Yes Status: Chronic (6) Tobacco use Current Visit: Yes Status: Chronic (7) PVD (peripheral vascular disease) Current Visit: Yes Status: Chronic Subjective Date of service: 02/23/19 Principal diagnosis: nstemi Interval history: pt resting comfortably in bed, no current complaints. tele reviewed - in SR with infrequent bouts of NSVT overnight (longest bout was 9 beats), pt asymptomatic. Objective Vital Signs Temp Pulse Pulse Resp Resp BP Pulse Ox 02/23/19 11:20 98.3 F 58 L 18 115/81 98 02/23/19 10:00 52 L 52 L 18 98 02/23/19 09:27 60 134/81 02/23/19 09:26 134/81 02/23/19 08:07 98.2 F 60 18 134/81 98 02/23/19 07:18 18 02/23/19 06:34 62 117/74 02/23/19 04:39 18 02/23/19 03:39 18 02/23/19 03:30 98.4 F 62 18 117/74 96 02/22/19 23:26 98.3 F 70 18 98/61 95 02/22/19 22:10 60 18 98 02/22/19 22:00 18 02/22/19 21:29 64 109/58 02/22/19 19:57 68 02/22/19 19:11 98.7 F 64 18 109/58 96 02/22/19 19:00 18 02/22/19 16:27 98.1 F 18 108/51 02/22/19 14:15 82 170/102 99 02/22/19 14:00 78 195/109 99 02/22/19 13:45 99 H 175/108 97 - Physical Examination General: No Apparent Distress HEENT: Positive: PERRL, Normocephaly, Mucus Membranes Moist Neck: Positive: neck supple, trachea midline Cardiac: Positive: Reg Rate and Rhythm, S1/S2 Lungs: Positive: clear to auscultation Neuro: Positive: Grossly Intact Abdomen: Negative: Tender Skin: Negative: Rash, Wound Incision: Cardiac Cath Site (right radial c/d/i, no bleeding or hematoma) Musculoskeletal: No Pain Extremities: Absent: edema - Labs and Meds Cardiac Enzymes 02/23/19 Range/Units 07:17 CK-MB (CK-2) 12.7 H (0.0-4.0) ng/mL CBC 02/23/19 Range/Units 07:17 WBC 8.5 (4.5-11.0) K/mm3 RBC 4.60 (3.65-5.03) M/mm3 Hgb 13.7 (11.8-15.2) gm/dl Hct 41.3 (35.5-45.6) % Plt Count 236 (140-440) K/mm3 Lymph # 3.1 (1.2-5.4) K/mm3 Calhoun # 0.7 (0.0-0.8) K/mm3 Eos # 0.2 (0.0-0.4) K/mm3 Baso # 0.1 (0.0-0.1) K/mm3 Comprehensive Metabolic Panel 02/23/19 Range/Units 07:17 Sodium 137 (137-145) mmol/L Potassium 4.2 (3.6-5.0) mmol/L Chloride 102.2 (98-107) mmol/L Carbon Dioxide 24 (22-30) mmol/L BUN 14 (9-20) mg/dL Creatinine 0.8 (0.8-1.5) mg/dL Glucose 95 (75-100) mg/dL Calcium 8.8 (8.4-10.2) mg/dL - Imaging and Cardiology EKG: report reviewed, image reviewed Echo: report reviewed (11/2016 showed EF 50-55%, mild to mod LVH, mild to mod MR.) Cardiac cath: report reviewed (11/2016 showed the left coronary system was free of significant disease. The right coronary artery was completely occluded at its ostium. There was evidence of extensive intracoronary thrombus. Successful angioplasty and stenting with deployment of a 4.0 mm bare metal stent across the primary lesion extending from the ostium of the vessel. Following this, export catheter thrombectomy was applied with removal of extensive thrombus from the vessel. ) - Telemetry EKG Rhythm: Sinus Rhythm - EKG Sinus rhythms and dysrhythmias: sinus rhythm Repolarization changes or abnormalities: ST or T wave suggestive of ischemia
--- NOTE | 2019-02-23 13:53 | Discharge Summary ---
Providers - Providers Date of Admission: 02/21/19 06:26 Date of discharge: 02/23/19 Attending physician: LOUISE LEE 02/21/19 14:02 Consult to Physician [CONS] Routine Comment: Consulting Provider: FLO NICOLE Physician Instructions: Reason For Exam: elevated troponin 02/22/19 Consult to Cardiac Rehabilitation [CONS] Routine Reason For Exam: post pci [facility] Condition: Stable Hospital course: Patient is a 49 yo man with a history of hypertension, CAD s/p shent, diet controlled DM type 2, OA and tobacc dependency who presented with chest pains. He was found to have NSTEMI and underwent LHC * 02/22/19 Left heart Catherization Final Impression: Uncomplicated ENRIKE stent placement of the mid LAD with the guidance of IVUS with very good result. No complication noted, KENIA 3 flow was noted pre and post-procedure. Then will be monitor overnight, the patient blood pressure is elevated up to 200 mmHg and was given 20 mg of hydralazine at the end of the procedure * 02/22/19 TTE Conclusion: Mild concentric LVH, est EF 55-60%, RVSF normal Discharge Diagnoses: NSTEMI s/p mid LAD ENRIKE Acute diastolic heart failure, poa Malignant Hypertension with Urgency Hypokalemia Tobacco dependency: counselor supervisor on stopping, he declined nicotine patch H/o CAD H/o PVD Disposition: DC-01 TO HOME OR SELFCARE Time spent for discharge: 34 minutes Core Measure Documentation - Palliative Care Palliative Care/ Comfort Measures: Not Applicable - Core Measures Any of the following diagnoses?: acute MO - VTE Discharge Requirements Deep Vein Thrombosis/Pulmonary Embolism Present on Admission: No Has pt received <5 days of overlap therapy or INR<2.0: No Anticoagulant overlap therapy prescribed at discharge: No Contraindication No Overlap Therapy order at DC: Not Indicated - Acute MO Discharge Requirements Aspirin at discharge: Yes NATO/ARB for LVSD if EF <40%: Yes Beta tierney at discharge: Yes Statin for LDL = or >100 mg/dl on DC: Yes Exam - Physical Exam Narrative exam: Gen: WDWN, NAD, Awake, Alert, Orientated HEENT: NCAT, EOMI, PERRL, OP Clear Neck: supple, no adenopathy, no thyromegaly, no JVD CVS/Heart: RRR, normal S1S2, pulses present bilaterally Chest/Lungs: CTA B, Symmetrical chest expansion, good air entry bilaterally GI/Abdomen: soft, NTND, good bowel sounds, no guarding or rebound /Bladder: no suprapubic tenderness, no CVA or paraspinal tenderness Extermity/Skin: no c/c/e, no obvious rash MSK: FROM x 4 Neuro: CN 2-12 grossly intact, no new focal deficits Psych: calm - Constitutional Vitals: Temp Pulse Resp BP Pulse Ox 98.3 F 58 L 18 115/81 98 02/23/19 11:20 02/23/19 11:20 02/23/19 11:20 02/23/19 11:20 02/23/19 11:20 Plan Activity: other (no strenous activity including but not limited to sex and driving unless cleared by Is Consultant) Diet: low salt, diabetic Special Instructions: record daily BP diary Follow up with: PRIMARY CARE, [Referring] - 3-5 Days FLO NICOLE MD [Staff Physician] - 7 Days Prescriptions: AtorvaSTATin [Lipitor] 80 mg PO QHS #30 tab Aspirin 325 mg PO QDAY #30 tablet Metoprolol [Lopressor TAB] 50 mg PO BID #60 tablet Nitroglycerin [Nitrostat] 0.4 mg SL .Q5MIN PRN #15 tablet PRN Reason: Chest Pain Clopidogrel [Plavix] 75 mg PO QDAY #30 tablet Lisinopril [Zestril TAB] 20 mg PO QDAY #30 tablet
== END 2019-02-23 16:10 | disposition home or self-care (01) | DRG 246 ==
LOC: ED 03:36 → 4A 06:26
PROVIDERS: ADMIT Internal Medicine; ATTEND Internal Medicine
PROC: 027034Z Dilation of Coronary Artery, One Artery with Drug-eluting Intraluminal Device, Percutaneous Approach (ICD-10-PCS; principal; 2019-02-22)
PROC: B240ZZ3 Ultrasonography of Single Coronary Artery, Intravascular (ICD-10-PCS; 2019-02-22)
PROC: 4A023N7 Measurement of Cardiac Sampling and Pressure, Left Heart, Percutaneous Approach (ICD-10-PCS; 2019-02-22)
PROC: B2111ZZ Fluoroscopy of Multiple Coronary Arteries using Low Osmolar Contrast (ICD-10-PCS; 2019-02-22)
PROC: B2151ZZ Fluoroscopy of Left Heart using Low Osmolar Contrast (ICD-10-PCS; 2019-02-22)
DX: I21.4 Non-ST elevation (NSTEMI) myocardial infarction (principal); I50.31 Acute diastolic (congestive) heart failure; I25.10 Atherosclerotic heart disease of native coronary artery without angina pectoris; G43.909 Migraine, unspecified, not intractable, without status migrainosus; I11.0 Hypertensive heart disease with heart failure; F17.210 Nicotine dependence, cigarettes, uncomplicated; E87.6 Hypokalemia; E11.51 Type 2 diabetes mellitus with diabetic peripheral angiopathy without gangrene; I16.0 Hypertensive urgency; I48.91 Unspecified atrial fibrillation; Z96.652 Presence of left artificial knee joint; Z86.718 Personal history of other venous thrombosis and embolism; Z88.8 Allergy status to other drugs, medicaments and biological substances; Z95.5 Presence of coronary angioplasty implant and graft; I25.2 Old myocardial infarction; Z95.820 Peripheral vascular angioplasty status with implants and grafts; Z71.6 Tobacco abuse counseling; Z79.84 Long term (current) use of oral hypoglycemic drugs
CPT/HCPCS: 36415; 71045; 80048; 80053; 80061; 82550; 82553; 82962; 83880; 84132; 84484; 85025; 85347; 85379; 85610; 92928; 92978; 93005; 93010; 93306; 93458; 96374; 96375; 96376; 99406; G0378; A9270-GY; C1725; C1753; C1769; C1874; C1887; C1894; C9600; J0360; J1644; J1650; J1885; J2250; J2270; J2405; J2785; J3010; J7040; Q9967

== ENCOUNTER 2019-04-04 04:22 | Emergency (ER) | payer MEDICAID ==
[2019-04-04 04:41] VITALS: BP 151/102
--- NOTE | 2019-04-04 06:03 | XRay Report ---
Left shoulder 3 views INDICATION: Left shoulder pain following injury IMPRESSION: Moderate AC joint degenerative change. No fracture or subluxation. Signer Name: Kirk Wright MD Signed: 04/04/2019 5:58 AM Workstation Name: [id number]
== END 2019-04-04 08:10 | disposition left against medical advice (07) ==
LOC: ED 04:22
DX: M25.511 Pain in right shoulder (principal); Z53.21 Procedure and treatment not carried out due to patient leaving prior to being seen by health care provider

== ENCOUNTER 2020-01-31 00:38 | Inpatient (IN) | payer MEDICAID ==
--- NOTE | 2020-01-31 01:22 | XRay Report ---
CHEST 1 VIEW 01/31/2020 1:13 AM INDICATION / CLINICAL INFORMATION: Chest Pain. COMPARISON: 02/23/2019 FINDINGS: SUPPORT DEVICES: None. HEART / MEDIASTINUM: No significant abnormality. LUNGS / PLEURA: No significant pulmonary or pleural abnormality. No pneumothorax. ADDITIONAL FINDINGS: No significant additional findings. IMPRESSION: 1. No acute findings. Signer Name: Cheko Camacho MD Signed: 01/31/2020 1:17 AM Workstation Name: [id number]
[2020-01-31 01:24] LABS: Basophils # (Auto) 0.1 K/mm3 (0.0-0.1); Eosinophils # (Auto) 0.1 K/mm3 (0.0-0.4); Eosinophils % (Auto) 2.2 % (0.0-4.3); Hematocrit 40.5 % (35.5-45.6); Hemoglobin 13.4 gm/dl (11.8-15.2); Lymphocytes % (Auto) 47.7 % (13.4-35.0); Mean Corpuscular HGB Conc 33 % (32-34); Mean Corpuscular Volume 91 fl (84-94); Monocytes # (Auto) 0.6 K/mm3 (0.0-0.8); Monocytes % (Auto) 9.9 % (0.0-7.3); Platelet Count 244 K/mm3 (140-440); Red Blood Count 4.46 M/mm3 (3.65-5.03)
[2020-01-31 01:32] LABS: BUN/Creatinine Ratio 21; Blood Urea Nitrogen 19 mg/dL (9-20); Hemolysis Index 20
[2020-01-31] MEDS ORDERED: HEPARIN 10,000 UNITS/10 ML VIAL IV ONE (01:54)
[2020-01-31] MEDS ORDERED: ONDANSETRON 4 MG/2 ML INJ IV ONE (01:55)
[2020-01-31] MEDS ORDERED: NITROGLYCERIN DRIP 50 MG/250 ML BOTTLE IV SCH (02:00)
[2020-01-31] MEDS ORDERED: HEPARIN/ 0.45% NACL DRIP 25,000 UNIT/500 ML BAG IV SCH (02:00)
--- NOTE | 2020-01-31 02:02 | Emergency Department Report ---
ED Chest Pain HPI - General Chief Complaint: Chest Pain Stated Complaint: CHEST PAIN Time Seen by Provider: 01/31/20 01:21 Source: patient, EMS Mode of arrival: Wheelchair Limitations: No Limitations - History of Present Illness Initial Comments: 50-year-old male with a with a history of hypertension, CAD s/p stent, diet controlled DM type 2, OA and tobacco dependency presents to the hospital complaining of left-sided and substernal chest pressure that started while at rest watching TV at 11 PM. Patient did take to his own nitroglycerin with some improvement in pain but then it returned. Patient now rates his pain at 11/10 in intensity. He had nausea one episode of vomiting upon arrival. He had diaphoresis at pain onset but has since resolved. He denies shortness of breath. Patient has a history of an ST elevation [place] last one treated here in April 2019. Patient did receive asa 324 in route with EMS. As per medical record: 02/22/19 Left heart Catherization Final Impression: Uncomplicated ENRIKE stent placement of the mid LAD with the guidance of IVUS with very good result. No complication noted, KENIA 3 flow was noted pre and post-procedure. Then will be monitor overnight, the patient blood pressure is elevated up to 200 mmHg and was given 20 mg of hydralazine at the end of the procedure 02/22/19 TTE Conclusion: Mild concentric LVH, est EF 55-60%, RVSF normal 11/2016 pt presented here with STEMI and required emergent PCI for RCA occlusion, RCA stent plased. Patient has been compliant with his medications including aspirin and Plavix. His primary home appliances mechanic is affiliated with another hospital Severity scale (0 -10): 10 - Related Data Previous Rx's Medication Instructions Recorded Last Taken Type ISOSORBIDE MONOnitrate [Imdur ER] 30 mg PO DAILY #30 tab.er.24h 11/07/16 Unknown Rx Acetaminophen [Acetaminophen TAB] 1 tab PO Q4H PRN #10 tablet 02/23/19 Unknown Rx Aspirin 325 mg PO QDAY #30 tablet 02/23/19 Unknown Rx AtorvaSTATin [Lipitor] 80 mg PO QHS #30 tab 02/23/19 Unknown Rx Clopidogrel [Plavix] 75 mg PO QDAY #30 tablet 02/23/19 Unknown Rx Metoprolol [Lopressor TAB] 50 mg PO BID #60 tablet 02/23/19 Unknown Rx Nitroglycerin [Nitrostat] 0.4 mg SL .Q5MIN PRN #15 tablet 02/23/19 Unknown Rx lisinopriL [Zestril TAB] 20 mg PO QDAY #30 tablet 02/23/19 Unknown Rx Allergies Allergy/AdvReac Type Severity Reaction Status Date / Time aspirin AdvReac Nausea Verified 09/09/13 08:02 Heart Score - HEART Score History: Highly suspicious EKG: Normal Age: 45-65 Risk factors: > 3 risk factors or hx of atherosclerotic disease Troponin: < normal limit HEART Score: 5 ED Review of Systems ROS: Stated complaint: CHEST PAIN Other details as noted in HPI Comment: All other systems reviewed and negative ED Past Medical Hx - Past Medical History Previous Medical History?: Yes Hx Hypertension: Yes Hx Heart Attack/AMI: Yes (x2 last [id number]) Hx Congestive Heart Failure: No Hx Diabetes: Yes (pre diabetic) Hx Deep Vein Thrombosis: Yes Hx Arthritis: Yes Hx Headaches / Migraines: Yes Hx Asthma: No Hx COPD: No Additional medical history: degenerative disc disease, AF - Surgical History Past Surgical History?: Yes Hx Coronary Stent: Yes (1) Additional Surgical History: left total knee replacement. c6 c7 appliance. knee surgery scope - Social History Smoking Status: Current Every Day Smoker Substance Use Type: None - Medications Home Medications: Home Medications Medication Instructions Recorded Confirmed Last Taken Type ISOSORBIDE MONOnitrate [Imdur ER] 30 mg PO DAILY #30 tab.er.24h 11/07/16 Unknown Rx Acetaminophen [Acetaminophen TAB] 1 tab PO Q4H PRN #10 tablet 02/23/19 Unknown Rx Aspirin 325 mg PO QDAY #30 tablet 02/23/19 Unknown Rx AtorvaSTATin [Lipitor] 80 mg PO QHS #30 tab 02/23/19 Unknown Rx Clopidogrel [Plavix] 75 mg PO QDAY #30 tablet 02/23/19 Unknown Rx Metoprolol [Lopressor TAB] 50 mg PO BID #60 tablet 02/23/19 Unknown Rx Nitroglycerin [Nitrostat] 0.4 mg SL .Q5MIN PRN #15 tablet 02/23/19 Unknown Rx lisinopriL [Zestril TAB] 20 mg PO QDAY #30 tablet 02/23/19 Unknown Rx ED Physical Exam - General Limitations: No Limitations - Other Other exam information: General: Moderate distress secondary to pain Head: Atraumatic Eyes: normal appearance ENT: Moist mucous membranes Neck: Normal appearance, no midline tenderness Chest: Clear to auscultation bilaterally CV: Regular rate and rhythm Abdomen: Soft, normal bowel sounds, nontender, nondistended, no rebound or guarding Extremity: Normal inspection, full range of motion, no calf tenderness or leg edema Neuro: Alert O x 3, no facial asymmetry, speech clear, no gross motor sensory deficit Psych: Appropriate behavior Skin: No diaphoresis ED Course Vital Signs 01/31/20 01/31/20 01/31/20 00:41 01:25 02:49 Temperature 97.4 F L 97.5 F L Pulse Rate 76 81 Respiratory 16 14 Rate Blood Pressure 169/110 Blood Pressure 160/104 173/110 [Right] O2 Sat by Pulse 97 93 Oximetry 01/31/20 01/31/20 01/31/20 02:53 03:00 03:15 Temperature Pulse Rate 85 81 89 Respiratory 20 15 12 Rate Blood Pressure 202/121 193/118 Blood Pressure [Right] O2 Sat by Pulse 99 99 100 Oximetry 01/31/20 01/31/20 01/31/20 03:30 03:45 04:00 Temperature Pulse Rate 83 92 H 92 H Respiratory 20 24 20 Rate Blood Pressure 179/111 184/122 150/95 Blood Pressure [Right] O2 Sat by Pulse 99 98 96 Oximetry - Consultations Consultation #1: 01/31/20 02:11 Case assessment [place] Pablo home appliances mechanic on-call for [facility]. Patient has been seen by both groups in the past. Initially seen by [facility] for ST elevation [place] and then subsequently seen by [facility] mission support specialist for end STEMI. Patient does not see the cardiology group as outpatient and his home appliances mechanic is not affiliated with this hospital. Dr. Shaw Pablo informed of patient's nonischemic EKG findings and initial negative troponin. Also informed that patient started on heparin and nitroglycerin drip. Pt will be evaluated tomorrow. KENIA score - Kenia Score Age > 65: (0) No Aspirin use within the Past 7 Days: (0) No 3 or more CAD Risk Factors: (1) Yes 2 or more Angina events in past 24 hrs: (0) No Known CAD with more than 50% Stenosis: (0) No Elevated Cardiac Markers: (0) No ST Deviation Greater than 0.5mm: (0) No KENIA Score: 1 ED Medical Decision Making - Lab Data Result diagrams: 01/31/20 00:51 01/31/20 00:51 Lab Results 01/31/20 01/31/20 01/31/20 Range/Units 00:51 00:51 01:21 WBC 6.4 (4.5-11.0) K/mm3 RBC 4.46 (3.65-5.03) M/mm3 Hgb 13.4 (11.8-15.2) gm/dl Hct 40.5 (35.5-45.6) % MCV 91 (84-94) fl MCH 30 (28-32) pg MCHC 33 (32-34) % RDW 15.0 (13.2-15.2) % Plt Count 244 (140-440) K/mm3 Lymph % (Auto) 47.7 H (13.4-35.0) % [place] % (Auto) 9.9 H (0.0-7.3) % Eos % (Auto) 2.2 (0.0-4.3) % Baso % (Auto) 1.0 (0.0-1.8) % Lymph # (Auto) 3.0 (1.2-5.4) K/mm3 [place] # (Auto) 0.6 (0.0-0.8) K/mm3 Eos # (Auto) 0.1 (0.0-0.4) K/mm3 Baso # (Auto) 0.1 (0.0-0.1) K/mm3 Seg Neutrophils % 39.2 L (40.0-70.0) % Seg Neutrophils # 2.5 (1.8-7.7) K/mm3 PT 14.2 (12.2-14.9) Sec. INR 1.09 (0.87-1.13) APTT 25.6 (24.2-36.6) Sec. Sodium 138 (137-145) mmol/L Potassium 3.7 (3.6-5.0) mmol/L Chloride 103.8 (98-107) mmol/L Carbon Dioxide 21 L (22-30) mmol/L Anion Gap 17 mmol/L BUN 19 (9-20) mg/dL Creatinine 0.9 (0.8-1.3) mg/dL Estimated GFR > 60 ml/min BUN/Creatinine Ratio 21 % Glucose 115 H (75-100) mg/dL Calcium 9.0 (8.4-10.2) mg/dL Troponin T < 0.010 (0.00-0.029) ng/mL - EKG Data -: EKG Interpreted by Me EKG shows normal: sinus rhythm, ST-T waves (no stemi) Rate: normal (84) - EKG Data When compared to previous EKG there are: no significant change - Medical Decision Making Patient presents with complaints of chest pain which she states is similar to his previous heart attacks. Upon medical record review patient has had recurrent non-ST elevation MIs with initial troponin x2 before elevation begins with unremarkable EKG. Last NSTEMI requiring intervention was here February 2019. Due to this history and presentation patient was treated aggressively in the ER with heparin bolus plus drip and initiation of nitroglycerin to titrate to pain relief and to improve blood pressure. Patient did receive relief in pain with nitroglycerin drip and morphine 4 mg Critical Care Time: Yes Critical care time in (mins) excluding proc time.: 40 Critical care attestation.: If time is entered above; I have spent that time in minutes in the direct care of this critically ill patient, excluding procedure time. ED Disposition Clinical Impression: Angina at rest, Stented coronary artery, Uncontrolled hypertension, Tobacco use Disposition: OP ADMIT IP TO THIS HOSP Is pt being admited?: Yes Does the pt Need Aspirin: Yes Condition: Stable Time of Disposition: 02:39 (Dr Mercado/hosp)
[2020-01-31 02:27] LABS: INR 1.09 (0.87-1.13); Partial Thromboplastin Time 25.6 Sec. (24.2-36.6)
[2020-01-31] MEDS ORDERED: MORPHINE 4 MG/1 ML INJ IV ONE (03:13)
[2020-01-31] MEDS ORDERED: MORPHINE 4 MG/1 ML INJ ONE (03:16)
[2020-01-31] MEDS ORDERED: MAGNESIUM HYDROXIDE (MOM) ORAL LIQD UDC PO PRN (03:41)
[2020-01-31] MEDS ORDERED: ACETAMINOPHEN 325 MG TAB PO PRN (03:41)
--- NOTE | 2020-01-31 04:07 | History and Physical Report ---
History of Present Illness Date of examination: 01/31/20 Date of admission: 01/31/20 02:41 Chief complaint: Chest Pain History of present illness: 50-year-old male with known history of hypertension, coronary artery disease with stent placement in the past, diet-controlled diabetes mellitus, arthritis and tobacco dependence presented to the emergency room today complaining of substernal chest pain while watching TV at home this evening. He took some sublingual nitroglycerin with transient improvement in the chest pain. He later continued to have chest pain. He had some diaphoresis which has since resolved Patient had some nausea with an episode of vomiting upon arrival in the emergency room. Patient has known history of ST elevation [place] in 2017 during which she had RCA occlusion with stent placement. He also had an NSTEMI in 2019. Patient's brokerage manager is affiliated with [facility]. Patient continues to smoke tobacco daily and planning to quit. Evaluation in the emergency room today has not revealed any significant abnormality on EKG, chest x-ray and also troponin levels were negative. Patient has been placed on heparin and nitroglycerin drip and to be closely monitored in the intensive care unit. Past History Past Medical History: atrial fib, arthritis, CAD, diabetes (Diet controlled), h ypertension, other Past Surgical History: total knee replacement (Left knee), PTCA, Other (C6,7 surgery) Social history: smoking (Current daily smoker) Family history: no significant family history Medications and Allergies Allergies Allergy/AdvReac Type Severity Reaction Status Date / Time aspirin AdvReac Nausea Verified 09/09/13 08:02 Home Medications Medication Instructions Recorded Confirmed Last Taken Type ISOSORBIDE MONOnitrate [Imdur ER] 30 mg PO DAILY #30 tab.er.24h 11/07/16 Unknown Rx Acetaminophen [Acetaminophen TAB] 1 tab PO Q4H PRN #10 tablet 02/23/19 Unknown Rx Aspirin 325 mg PO QDAY #30 tablet 02/23/19 Unknown Rx AtorvaSTATin [Lipitor] 80 mg PO QHS #30 tab 02/23/19 Unknown Rx Clopidogrel [Plavix] 75 mg PO QDAY #30 tablet 02/23/19 Unknown Rx Metoprolol [Lopressor TAB] 50 mg PO BID #60 tablet 02/23/19 Unknown Rx Nitroglycerin [Nitrostat] 0.4 mg SL .Q5MIN PRN #15 tablet 02/23/19 Unknown Rx lisinopriL [Zestril TAB] 20 mg PO QDAY #30 tablet 02/23/19 Unknown Rx Active Meds: Active Medications Acetaminophen (Tylenol) 650 mg PO Q6H PRN PRN Reason: Pain, Mild (1-3) Aspirin (Ecotrin) 325 mg PO QDAY BREANNA Nitroglycerin/Dextrose (Tridil Drip 50mg/250ml) 50 mg in 250 mls @ 3 mls/hr IV TITR BREANNA; Protocol Last Titration: 01/31/20 03:30 Dose: 95 mcg/min, 28.5 mls/hr Documented by: Heparin Sodium/Sodium Chloride (Heparin/ 0.45% Nacl-25,000 Unit/500 Ml) 25,000 unit in 500 mls @ 20 mls/hr IV TITRATE BREANNA; Protocol Last Admin: 01/31/20 02:13 Dose: 1,000 units/hr, 20 mls/hr Documented by: Magnesium Hydroxide (Milk Of Magnesia) 30 ml PO Q4H PRN PRN Reason: Constipation Morphine Sulfate (Morphine) 2 mg IV Q5MIN PRN PRN Reason: Chest Pain Sodium Chloride (Sodium Chloride Flush Syringe 10 Ml) 10 ml IV BID BREANNA Sodium Chloride (Sodium Chloride Flush Syringe 10 Ml) 10 ml IV PRN PRN PRN Reason: LINE FLUSH Sodium Chloride (Sodium Chloride Flush Syringe 10 Ml) 10 ml IV PRN PRN PRN Reason: LINE FLUSH Review of Systems Constitutional: no fever, no chills Ears, nose, mouth and throat: no nasal congestion, no sore throat Cardiovascular: chest pain, no palpitations Respiratory: no cough, no shortness of breath Gastrointestinal: nausea, no abdominal pain, no vomiting, no diarrhea Genitourinary Male: no dysuria, no hematuria, no flank pain Musculoskeletal: no neck stiffness, no low back pain Integumentary: no rash, no pruritis Exam - Constitutional Vitals: Temp Pulse Resp BP Pulse Ox 97.5 F L 81 14 173/110 93 01/31/20 01:25 01/31/20 01:25 01/31/20 01:25 01/31/20 02:49 01/31/20 01:25 General appearance: Present: no acute distress, well-nourished, obese - EENT Eyes: Present: PERRL, EOM intact ENT: hearing intact, clear oral mucosa, dentition normal - Neck Neck: Present: supple, normal ROM - Respiratory Respiratory effort: normal Respiratory: bilateral: CTA - Cardiovascular Rhythm: regular Heart Sounds: Present: S1 & S2. Absent: gallop, systolic murmur, diastolic murmur, rub - Extremities Extremities: no ischemia, pulses intact, pulses symmetrical, No edema, Full ROM Peripheral Pulses: within normal limits - Abdominal General gastrointestinal: Present: soft, non-tender, non-distended, normal bowel sounds. Absent: mass - Integumentary Integumentary: Present: clear, warm, dry - Musculoskeletal Musculoskeletal: strength equal bilaterally - Psychiatric Psychiatric: appropriate mood/affect, intact judgment & insight, memory intact, cooperative - Neurologic Neurologic: CNII-XII intact, no focal deficits, moves all extremities HEART Score - HEART Score History: Highly suspicious EKG: Normal Age: 45-65 Risk factors: > 3 risk factors or hx of atherosclerotic disease Troponin: Troponin T < 0.010 ng/mL (0.00-0.029) 01/31/20 00:51 Troponin: < normal limit HEART Score: 5 Results - Labs CBC & Chem 7: 01/31/20 00:51 01/31/20 00:51 Labs: Abnormal lab results 01/31/20 01/31/20 Range/Units 00:51 00:51 Lymph % (Auto) 47.7 H (13.4-35.0) % [place] % (Auto) 9.9 H (0.0-7.3) % Seg Neutrophils % 39.2 L (40.0-70.0) % Carbon Dioxide 21 L (22-30) mmol/L Glucose 115 H (75-100) mg/dL Assessment and Plan - Patient Problems (1) Acute chest pain Current Visit: No Status: Acute Plan to address problem: Patient has been started on nitroglycerin and heparin drip. He has known history of coronary artery disease. We will check serial cardiac enzymes and we await cardiology evaluation. (2) Hypertension Current Visit: Yes Status: Acute Plan to address problem: We will resume routine home medications once reconciled. Will monitor vital signs closely. (3) Tobacco use Current Visit: Yes Status: Chronic Plan to address problem: Patient counseled on quitting tobacco use. We will offer nicotine patch as needed. (4) DVT prophylaxis Current Visit: Yes Status: Acute Plan to address problem: Patient currently on anticoagulation. (5) Full code status Current Visit: Yes Status: Acute
[2020-01-31] MEDS ORDERED: MORPHINE 2 MG/1 ML INJ ONE ×3 (05:27→10:59)
[2020-01-31] MEDS: MORPHINE 4 MG/1 ML INJ IV PRN ×4 (05:28→17:09)
[2020-01-31 08:11] LABS: Basophils % (Auto) 0.2 % (0.0-1.8); Eosinophils % (Auto) 0.1 % (0.0-4.3); Hematocrit 39.8 % (35.5-45.6); Hemoglobin 13.3 gm/dl (11.8-15.2); Lymphocytes # (Auto) 1.2 K/mm3 (1.2-5.4); Lymphocytes % (Auto) 13.5 % (13.4-35.0); Mean Corpuscular HGB Conc 33 % (32-34); Mean Corpuscular Volume 90 fl (84-94); Monocytes # (Auto) 0.3 K/mm3 (0.0-0.8); Monocytes % (Auto) 3.7 % (0.0-7.3); Platelet Count 243 K/mm3 (140-440); Red Blood Count 4.43 M/mm3 (3.65-5.03); Red Cell Distribution Width 14.6 % (13.2-15.2)
[2020-01-31 08:24] LABS: Blood Urea Nitrogen 18 mg/dL (9-20); Calcium 9.4 mg/dL (8.4-10.2); Hemolysis Index 6
[2020-01-31] MEDS ORDERED: REGADENOSON 0.4 MG/5 ML INJ IV ONE (08:26)
[2020-01-31 08:27] LABS: BUN/Creatinine Ratio 26; Chol/HDL Ratio 5.06 %
[2020-01-31] MEDS ORDERED: hydrOXYzine PAMOATE 25 MG CAP PO ONE (09:53)
[2020-01-31] MEDS ORDERED: hydrOXYzine PAMOATE 25 MG CAP PO SCH (10:00)
--- NOTE | 2020-01-31 10:23 | Consultation ---
History of Present Illness Consult date: 01/31/20 Requesting physician: FOX CHASE Consult reason: chest pain History of present illness: The pt is a 50 YO male with a past medical history of CAD s/p STEMI with PCI to RCA in 2016, HTN, diabetes, PVD s/p LLE stenting in 2015, tobacco use. He is regularly followed by [facility]. He presented with complaints of chest pain since yesterday around 11PM. He states that he was laying in bed watching TV when the pain began. He describes his chest pain as a constant left-sided aching pain which feels similar to the pain he experienced with his STEMI in 11/2016 and NSTEMI in 02/2019. Pt reports compliance with his home medication regimen, including ASA 81 and Plavix. His chest pain was associated with some SOB. Pt denies any palpitations, n/v, diaphoresis, dizziness or syncope. Pt was initiated on heparin gtt and nitro gtt overnight, reports his chest pain is somewhat improved. tte done 02/2019 showed EF 55-60%, mild LVH. LHC done 09/2018 showed 70-80% mid LAD lesion with with ENRIKE placement, patent RCA stent with mod mid RCA disease, ramus branch with very severe lesion in very small caliber vessel. LHC done 11/2016 showed RCA completely occluded at its ostium with evidence of extensive intracoronary thrombus. Successful angioplasty and BMS placement across the primary lesion extending from the ostium of the vessel. Following this, export catheter thrombectomy was applied with removal of extensive thrombus from the vessel. Past History Past Medical History: acute CO, CAD, diabetes (Diet controlled), hypertension, other (PVD) Past Surgical History: total knee replacement (Left knee), PTCA, Other (C6,7 surgery) Social history: smoking (Current daily smoker) Family history: no significant family history Medications and Allergies Allergies Allergy/AdvReac Type Severity Reaction Status Date / Time aspirin AdvReac Nausea Verified 09/09/13 08:02 Home Medications Medication Instructions Recorded Confirmed Last Taken Type Acetaminophen [Acetaminophen TAB] 1 tab PO Q4H PRN #10 tablet 02/23/19 01/31/20 Unknown Rx Metoprolol [Lopressor TAB] 50 mg PO BID #60 tablet 02/23/19 01/31/20 Unknown Rx Nitroglycerin [Nitrostat] 0.4 mg SL .Q5MIN PRN #15 tablet 02/23/19 01/31/20 Unknown Rx Apixaban [Eliquis] 5 mg PO DAILY 01/31/20 01/31/20 Unknown History Cyclobenzaprine [Flexeril] 10 mg PO TID PRN 01/31/20 01/31/20 Unknown History Losartan/Hydrochlorothiazide 1 each PO DAILY 01/31/20 01/31/20 Unknown History [Losartan-Hctz 100-25 mg Tab] Pramipexole [Mirapex] 0.125 mg PO TID 01/31/20 01/31/20 Unknown History amLODIPine [Norvasc] 5 mg PO DAILY 01/31/20 01/31/20 Unknown History traMADoL [Ultram] 50 mg PO Q6HR PRN 01/31/20 01/31/20 Unknown History Active Meds: Active Medications Acetaminophen (Tylenol) 650 mg PO Q6H PRN PRN Reason: Pain, Mild (1-3) Aspirin (Ecotrin) 325 mg PO QDAY BREANNA Nitroglycerin/Dextrose (Tridil Drip 50mg/250ml) 50 mg in 250 mls @ 3 mls/hr IV TITR BREANNA; Protocol Last Titration: 01/31/20 04:21 Dose: 105 mcg/min, 31.5 mls/hr Documented by: Heparin Sodium/Sodium Chloride (Heparin/ 0.45% Nacl-25,000 Unit/500 Ml) 25,000 unit in 500 mls @ 20 mls/hr IV TITRATE BREANNA; Protocol Last Titration: 01/31/20 08:42 Dose: 1,150 units/hr, 23 mls/hr Documented by: Magnesium Hydroxide (Milk Of Magnesia) 30 ml PO Q4H PRN PRN Reason: Constipation Morphine Sulfate (Morphine) 2 mg IV Q5MIN PRN PRN Reason: Chest Pain Last Admin: 01/31/20 07:53 Dose: 2 mg Documented by: Sodium Chloride (Sodium Chloride Flush Syringe 10 Ml) 10 ml IV BID BREANNA Last Admin: 01/31/20 09:56 Dose: 10 ml Documented by: Sodium Chloride (Sodium Chloride Flush Syringe 10 Ml) 10 ml IV PRN PRN PRN Reason: LINE FLUSH Review of Systems Constitutional: no weight loss, no weight gain, no fever, no chills, no sweats Ears, nose, mouth and throat: no ear pain, no nose pain, no sinus pressure, no sinus pain Cardiovascular: chest pain, shortness of breath, no orthopnea, no palpitations, no rapid/irregular heart beat, no edema, no syncope, no leg edema Respiratory: shortness of breath, no cough, no congestion, no wheezing, no pain on inspiration Gastrointestinal: no abdominal pain, no nausea, no vomiting, no diarrhea, no constipation, no change in bowel habits Genitourinary Male: no dysuria, no hematuria, no flank pain, no discharge, no urinary frequency, no urinary hesitancy Musculoskeletal: no neck stiffness, no neck pain, no shooting arm pain, no arm numbness/tingling, no low back pain, no shooting leg pain Integumentary: no rash, no pruritis, no redness, no sores, no wounds Neurological: no head injury, no paralysis, no weakness, no parathesias, no numbness, no tingling, no seizures, no syncope Psychiatric: no anxiety Endocrine: no cold intolerance, no heat intolerance Hematologic/Lymphatic: no easy bruising Allergic/Immunologic: no urticaria Physical Examination Vital Signs Temp Pulse Resp BP Pulse Ox 97.4 F L 76 16 169/110 97 01/31/20 00:41 01/31/20 00:41 01/31/20 00:41 01/31/20 00:41 01/31/20 00:41 General appearance: no acute distress HEENT: Positive: PERRL, Normocephaly, Mucus Membranes Moist Neck: Positive: neck supple, trachea midline Cardiac: Positive: Reg Rate and Rhythm, S1/S2 Lungs: Positive: Decreased Breath Sounds Neuro: Positive: Grossly Intact Abdomen: Negative: Tender Skin: Negative: Rash Musculoskeletal: No Pain Extremities: Absent: edema Results 01/31/20 08:01 01/31/20 08:01 Coagulation 01/31/20 Range/Units 01:21 PT 14.2 (12.2-14.9) Sec. INR 1.09 (0.87-1.13) APTT 25.6 (24.2-36.6) Sec. Lipids 01/31/20 Range/Units 08:01 Triglycerides 81 (2-149) mg/dL Cholesterol 167 (50-199) mg/dL HDL Cholesterol 33 L (40-59) mg/dL Cholesterol/HDL Ratio 5.06 % CBC 01/31/20 01/31/20 Range/Units 00:51 08:01 WBC 6.4 9.0 (4.5-11.0) K/mm3 RBC 4.46 4.43 (3.65-5.03) M/mm3 Hgb 13.4 13.3 (11.8-15.2) gm/dl Hct 40.5 39.8 (35.5-45.6) % Plt Count 244 243 (140-440) K/mm3 Lymph # (Auto) 3.0 1.2 (1.2-5.4) K/mm3 [place] # (Auto) 0.6 0.3 (0.0-0.8) K/mm3 Eos # (Auto) 0.1 0.0 (0.0-0.4) K/mm3 Baso # (Auto) 0.1 0.0 (0.0-0.1) K/mm3 Comprehensive Metabolic Panel 01/31/20 01/31/20 Range/Units 00:51 08:01 Sodium 138 139 (137-145) mmol/L Potassium 3.7 4.2 (3.6-5.0) mmol/L Chloride 103.8 103.0 (98-107) mmol/L Carbon Dioxide 21 L 27 (22-30) mmol/L BUN 19 18 (9-20) mg/dL Creatinine 0.9 0.7 L (0.8-1.3) mg/dL Glucose 115 H 130 H (75-100) mg/dL Calcium 9.0 9.4 (8.4-10.2) mg/dL - Imaging and Cardiology Echo: report reviewed (02/2019 showed EF 55-60%, mild LVH. ) Cardiac cath: report reviewed (LHC done 09/2018 showed 70-80% mid LAD lesion with with ENRIKE placement, patent RCA stent with mod mid RCA disease, ramus branch with very severe lesion in very small caliber vessel. 11/2016 PCI to RCA with BMS) EKG: report reviewed, image reviewed EKG interpretations - Telemetry EKG Rhythm: Sinus Rhythm - EKG Sinus rhythms and dysrhythmias: sinus rhythm Assessment and Plan Coronary angiography recommended given clinical presentation and h/o CAD/PCI. Indications, potential risks and benefits of LHC reviewed with pt and he is agreeable to proceed with [facility] today. Await findings. F/u echo. The patient has been seen in conjunction with Dr. Fall who agrees with the assessment and plan of care. - Patient Problems (1) NSTEMI (non-ST elevated myocardial infarction) Current Visit: Yes Status: Acute (2) HTN (hypertension) Current Visit: Yes Status: Chronic (3) CAD (coronary artery disease) Current Visit: Yes Status: Chronic (4) Stented coronary artery Current Visit: Yes Status: Chronic (5) Diabetes Current Visit: Yes Status: Chronic (6) Tobacco use Current Visit: Yes Status: Chronic (7) PVD (peripheral vascular disease) Current Visit: Yes Status: Chronic
[2020-01-31] MEDS ORDERED: NITROGLYCERIN DRIP 50 MG/250 ML BOTTLE ONE (10:40)
[2020-01-31] MEDS ORDERED: SODIUM CHLORIDE 0.9% 500 ML 500 ML IV SCH (11:00)
[2020-01-31] MEDS ORDERED: HEPARIN 10,000 UNITS/10 ML VIAL ONE (11:13)
[2020-01-31] MEDS ORDERED: HEPARIN/NS 5000 UNIT/500ML 1,000 ML IR ONE (11:13)
[2020-01-31] MEDS ORDERED: fentaNYL 100 MCG/2 ML INJ ONE (11:14)
[2020-01-31] MEDS ORDERED: LIDOCAINE (2%) 20 MG/1 ML VIAL 20 ML MDV INFILTRATI ONE (11:14)
[2020-01-31] MEDS ORDERED: MIDAZOLAM 2 MG/2 ML INJ ONE (11:14)
[2020-01-31] MEDS ORDERED: VERAPAMIL 5 MG/2 ML INJ ONE (11:14)
[2020-01-31] MEDS ORDERED: NITROGLYCERIN SYRINGE 3 ML ONE (11:15)
[2020-01-31] MEDS ORDERED: ASPIRIN 81 MG TAB CHEW ONE (11:42)
[2020-01-31] MEDS ORDERED: CLOPIDOGREL 300 MG TAB ONE (11:55)
[2020-01-31] MEDS ORDERED: HEPARIN/ 0.45% NACL DRIP 25,000 UNIT/500 ML BAG ONE (11:55)
[2020-01-31] MEDS ORDERED: traMADol 50 MG TAB PO PRN (12:00)
--- NOTE | 2020-01-31 13:01 | Cardiac Catherization Report ---
LEFT HEART CATHETERIZATION DONE BY: Dr. Fall. CLINICAL INFORMATION: This is a 50-year-old -[place] gentleman who has hypertension, hyperlipidemia, known coronary artery disease, had PCI of the LAD in 02/2019 of drug-eluting 3.0 x 18. The patient states compliance with Plavix and not on aspirin,has p afib on elquis still smoker, presents with chest pain with acute coronary syndrome, non-ST elevation [place]. The patient was done with moderate sedation, started at 11:37, finished at 11:49, 12 minutes of moderate sedation. Procedure was done via the right radial artery, sterile technique, local anesthesia, 6-Bahraini radial sheath inserted. PROCEDUR FINDINGS: Left system engaged with JL3.5 catheter. Left main is large and patent. LAD is a large caliber vessel, ectatic in areas with mid stent patent. Diagonal 1 is 100% compared to cath that was done in February of the flush occlusion, did not see any area of intervention. Circumflex is a large caliber vessel with [id number] diffuse disease. OM1 is a small caliber vessel, diffuse disease 80-90% of a less than 2-mm vessel. OM2 is a large caliber vessel, patent with mild luminal irregularities. RCA is engaged with a JR4 catheter, large dominant vessel, moderate tortuosity, proximal 50%, mid at the crux 50%, distal medium caliber vessel, patent with mild lumen irregularities. The whole RCA has diffuse disease, 10-20%. LV gram done in BENGALI and QUINONES view shows normal LV function, EF 55-60%, LVEDP 27 mmHg and _, aortic is 146/85. No gradient across the aortic valve on pullback. 5-Bahraini catheters all taken over guidewire. 6-Bahraini radial sheath was discontinued. Radial band applied. No hematoma, no bleeding. SUMMARY: Left main patent, LAD large caliber ectatic with mid stent patent, diagonal 100%. Circumflex patent, OM1 diffuse disease, small caliber, OM2 large patent vessel. RCA proximal, mid 50% with diffuse disease with normal LV function. The patient will be on heparin therapy. Medical management of acute coronary syndrome. Smoking cessation, high dose statin, discussed this with the patient in detail. JOB# [id number] [facility]
[2020-01-31] MEDS ORDERED: ONDANSETRON 4 MG/2 ML INJ IV PRN (15:49)
--- NOTE | 2020-01-31 16:53 | Event Note ---
Date: 01/31/20 he pt is a 50 YO male with a past medical history of CAD s/p STEMI with PCI to RCA in 2016, HTN, diabetes, PVD s/p LLE stenting in 2016, tobacco use. He is regularly followed by [facility]. He presented with complaints of chest pain since yesterday around 11PM. chest pain at rest. He had STEMI in 11/2016 and NSTEMI in 02/2019. takes ASA 81 and Plavix. His chest pain was associated with some SOB. Pt denies any palpitations, n/v, diaphoresis, dizziness or syncope. Pt was initiated on heparin gtt and nitro gtt overnight, reports his chest pain is some what improved. tte done 02/2019 showed EF 55-60%, mild LVH. LHC done 09/2018 showed 70-80% mid LAD lesion with with ENRIKE placement, patent RCA stent with mod mid RCA disease, ramus branch with very severe lesion in very small caliber vessel. LHC done 11/2016 showed RCA completely occluded at its ostium with evidence of extensive intracoronary thrombus. Successful angioplasty and BMS placement acr oss the primary lesion extending from the ostium of the vessel. Following this, export catheter thrombectomy was applied with removal of extensive thrombus from the vessel. Patient had stress test today which was significant for occlusion at the distal arteries. Plan is to place patient back on Plavix and aspirin beta-tierney, antilipid and long-acting nitroglycerin. Patient be followed in-house for 24 hours and anticipated discharge in the a.m.
[2020-01-31] MEDS ORDERED: ZOLPIDEM 5 MG TAB PO PRN (21:06)
[2020-01-31] MEDS: HYDROcodone/ACETAMINOPHEN 5-325 MG TAB PO PRN (21:19)
[2020-01-31] MEDS ORDERED: METOPROLOL TARTRATE 50 MG TAB PO SCH (22:00)
[2020-02-01] MEDS: HYDROcodone/ACETAMINOPHEN 5-325 MG TAB PO PRN ×3 (03:36→14:51)
[2020-02-01 07:48] LABS: Basophils % (Auto) 0.4 % (0.0-1.8); Eosinophils % (Auto) 0.3 % (0.0-4.3); Hematocrit 38.1 % (35.5-45.6); Hemoglobin 12.7 gm/dl (11.8-15.2); Lymphocytes # (Auto) 2.2 K/mm3 (1.2-5.4); Lymphocytes % (Auto) 21.5 % (13.4-35.0); Mean Corpuscular HGB Conc 33 % (32-34); Mean Corpuscular Volume 91 fl (84-94); Monocytes # (Auto) 1.1 K/mm3 (0.0-0.8); Monocytes % (Auto) 10.3 % (0.0-7.3); Platelet Count 228 K/mm3 (140-440); Red Blood Count 4.18 M/mm3 (3.65-5.03); Red Cell Distribution Width 15.2 % (13.2-15.2)
[2020-02-01 07:58] LABS: INR 0.98 (0.87-1.13)
[2020-02-01 08:09] LABS: BUN/Creatinine Ratio 19; Blood Urea Nitrogen 15 mg/dL (9-20); Calcium 9.2 mg/dL (8.4-10.2); Hemolysis Index 4
[2020-02-01] MEDS: ASPIRIN 81 MG TAB CHEW PO SCH (09:41)
[2020-02-01] MEDS: CLOPIDOGREL 75 MG TAB PO SCH (09:41)
[2020-02-01] MEDS: amLODIPine 5 MG TAB PO SCH (09:42)
[2020-02-01] MEDS: METOPROLOL TARTRATE 50 MG TAB PO SCH ×3 (09:43→22:25)
--- NOTE | 2020-02-01 09:43 | Progress Note ---
Assessment and Plan S/p [facility] yesterday - lt main patent, lad mid stent patent, small diagonal 1 100%, lcx patent om2 patent, rca proximal and mid 50%, compared to [facility] last year diagonal 1 is occluded now and normal lv function. Cont medical management. D/c heparin gtt and resume home Eliquis in setting of paroxysmal AFib. NSVT noted overnight - increase lopressor dosage. Pt with c/o headache this AM - reduce Imdur dosage. Anticipate discharge tomorrow AM. The patient has been seen in conjunction with Dr. Fall who agrees with the assessment and plan of care. - Patient Problems (1) NSTEMI (non-ST elevated myocardial infarction) Current Visit: Yes Status: Acute (2) CAD (coronary artery disease) Current Visit: Yes Status: Chronic (3) Stented coronary artery Current Visit: Yes Status: Chronic (4) HTN Current Visit: Yes Status: Chronic (5) Paroxysmal atrial fibrillation Current Visit: Yes Status: Chronic (6) Diabetes Current Visit: Yes Status: Chronic (7) Tobacco use Current Visit: Yes Status: Chronic (8) PVD (peripheral vascular disease) Current Visit: Yes Status: Chronic (9) Hyperlipidemia Current Visit: Yes Status: Chronic (10) NSVT Current Visit: Yes Status: Acute Subjective Date of service: 02/01/20 Principal diagnosis: NSTEMI Interval history: pt resting in bed, no current complaints. in SR on tele HR 80s, several bouts of NSVT noted overnight (longest was 8 beat run NSVT), pt asymptomatic. Objective Last Vital Signs Temp 98.2 F 02/01/20 08:21 Pulse 88 02/01/20 09:42 Resp 18 02/01/20 08:21 BP 133/93 02/01/20 09:42 Pulse Ox 97 02/01/20 08:21 - Physical Examination General: No Apparent Distress HEENT: Positive: PERRL, Normocephaly, Mucus Membranes Moist Neck: Positive: neck supple, trachea midline Cardiac: Positive: Reg Rate and Rhythm, S1/S2 Lungs: Positive: Decreased Breath Sounds Neuro: Positive: Grossly Intact Abdomen: Negative: Tender Skin: Negative: Rash Incision: Cardiac Cath Site (right radial [facility] site c/d/i, no bleeding or hematoma) Musculoskeletal: No Pain Extremities: Absent: edema - Labs and Meds Coagulation 02/01/20 Range/Units 07:07 PT 13.1 (12.2-14.9) Sec. INR 0.98 (0.87-1.13) CBC 02/01/20 Range/Units 07:07 WBC 10.3 (4.5-11.0) K/mm3 RBC 4.18 (3.65-5.03) M/mm3 Hgb 12.7 (11.8-15.2) gm/dl Hct 38.1 (35.5-45.6) % Plt Count 228 (140-440) K/mm3 Lymph # (Auto) 2.2 (1.2-5.4) K/mm3 [place] # (Auto) 1.1 H (0.0-0.8) K/mm3 Eos # (Auto) 0.0 (0.0-0.4) K/mm3 Baso # (Auto) 0.0 (0.0-0.1) K/mm3 Comprehensive Metabolic Panel 02/01/20 Range/Units 07:07 Sodium 138 (137-145) mmol/L Potassium 4.3 (3.6-5.0) mmol/L Chloride 101.4 (98-107) mmol/L Carbon Dioxide 29 (22-30) mmol/L BUN 15 (9-20) mg/dL Creatinine 0.8 (0.8-1.3) mg/dL Glucose 97 (75-100) mg/dL Calcium 9.2 (8.4-10.2) mg/dL - Imaging and Cardiology EKG: report reviewed, image reviewed Echo: report reviewed (02/2019 showed EF 55-60%, mild LVH. ) Cardiac cath: report reviewed ([facility] done 09/2018 showed 70-80% mid LAD lesion with with ENRIKE placement, patent RCA stent with mod mid RCA disease, ramus branch with very severe lesion in very small caliber vessel. 11/2016 PCI to RCA with BMS) - EKG Sinus rhythms and dysrhythmias: sinus rhythm
[2020-02-01] MEDS ORDERED: ASPIRIN EC 325 MG TAB PO SCH (10:00)
--- NOTE | 2020-02-01 11:15 | Progress Note ---
Assessment and Plan Assessment and plan: 50-year-old male with known history of hypertension, coronary artery disease with stent placement in the past, diet-controlled diabetes mellitus, arthritis and tobacco dependence presented to the emergency room today complaining of substernal chest pain while watching TV at home this evening. He took some sublingual nitroglycerin with transient improvement in the chest pain. He later continued to have chest pain. He had some diaphoresis which has since resolved Patient had some nausea with an episode of vomiting upon arrival in the emergency room. Patient has known history of ST elevation [place] in 2017 during which she had RCA occlusion with stent placement. He also had an NSTEMI in 2019. 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 Patient continues to smoke tobacco daily and planning to quit. Evaluation in the emergency room today has not revealed any significant abno rmality on EKG, chest x-ray and also troponin levels were negative. Patient has been placed on heparin and nitroglycerin drip and to be closely monitored in the intensive care unit. S/p [facility] yesterday - lt main patent, lad mid stent patent, small diagonal 1 100%, lcx patent om2 patent, rca proximal and mid 50%, compared to [facility] last year diagonal 1 is occluded now and normal lv function. Cont medical management. D/c heparin gtt and resume home Eliquis in setting of paroxysmal AFib. NSVT noted overnight - increase lopressor dosage. - Patient Problems (1) NSTEMI (non-ST elevated myocardial infarction) Current Visit: Yes Status: Acute (2) CAD (coronary artery disease) Current Visit: Yes Status: Chronic (3) Stented coronary artery Current Visit: Yes Status: Chronic (4) HTN Current Visit: Yes Status: Chronic (5) Paroxysmal atrial fibrillation Current Visit: Yes Status: Chronic (6) Diabetes Current Visit: Yes Status: Chronic (7) Tobacco use Current Visit: Yes Status: Chronic (8) PVD (peripheral vascular disease) Current Visit: Yes Status: Chronic (9) Hyperlipidemia Current Visit: Yes Status: Chronic (10) NSVT Current Visit: Yes Status: Acute (11) Acute Diastolic Heart Failure Current Visit: Yes Status: Acute (12) SIRS without organ dysfunction and no sepsis Current Visit: Yes Status: Acute History Interval history: Patient seen and examined clinically stable no new complaints. Advised about findings on the cardiac catheterization he verbalized understanding he also verbalized understanding the need to quit tobacco use. Hospitalist Physical - Physical exam Narrative exam: VITAL SIGNS: Reviewed. GENERAL: The patient appears normally developed, morbidly obese vital signs as documented. HEAD: No signs of head trauma. EYES: Pupils are equal. Extraocular motions intact. EARS: Hearing grossly intact. MOUTH: Oropharynx is normal. NECK: No adenopathy, no JVD. CHEST: Chest with clear breath sounds bilaterally. No wheezes, rales, or rhonchi. CARDIAC: Regular rate and rhythm. S1 and S2, without murmurs, gallops, or rubs. VASCULAR: No Edema. Peripheral pulses normal and equal in all extremities. ABDOMEN: Soft, non tender and non distended. No rebound or guarding, and no masses palpated. Bowel Sounds normal. MUSCULOSKELETAL: Good range of motion of all major joints. Extremities without clubbing, cyanosis or edema. NEUROLOGIC EXAM: Alert and oriented x 3 No focal sensory or strength defici ts. Speech normal. Follows commands. PSYCHIATRIC: Mood normal. SKIN: detail exam as documented in skin assessment - Constitutional Vitals: Temp Pulse Resp BP Pulse Ox 98.2 F 80 18 133/93 97 02/01/20 08:21 02/01/20 11:01 02/01/20 08:21 02/01/20 11:01 02/01/20 08:21 General appearance: Present: no acute distress HEART Score - HEART Score EKG: Normal Age: 45-65 Risk factors: > 3 risk factors or hx of atherosclerotic disease Troponin: Troponin T 0.751 ng/mL (0.00-0.029) H* D 02/01/20 07:07 Troponin: < normal limit Results - Labs CBC & Chem 7: 02/02/20 05:24 02/01/20 07:07 Labs: Laboratory Last Values WBC 10.3 K/mm3 (4.5-11.0) 02/01/20 07:07 RBC 4.18 M/mm3 (3.65-5.03) 02/01/20 07:07 Hgb 12.7 gm/dl (11.8-15.2) 02/01/20 07:07 Hct 38.1 % (35.5-45.6) 02/01/20 07:07 MCV 91 fl (84-94) 02/01/20 07:07 MCH 30 pg (28-32) 02/01/20 07:07 MCHC 33 % (32-34) 02/01/20 07:07 RDW 15.2 % (13.2-15.2) 02/01/20 07:07 Plt Count 228 K/mm3 (140-440) 02/01/20 07:07 Lymph % (Auto) 21.5 % (13.4-35.0) 02/01/20 07:07 [place] % (Auto) 10.3 % (0.0-7.3) H 02/01/20 07:07 Eos % (Auto) 0.3 % (0.0-4.3) 02/01/20 07:07 Baso % (Auto) 0.4 % (0.0-1.8) 02/01/20 07:07 Lymph # (Auto) 2.2 K/mm3 (1.2-5.4) 02/01/20 07:07 [place] # (Auto) 1.1 K/mm3 (0.0-0.8) H 02/01/20 07:07 Eos # (Auto) 0.0 K/mm3 (0.0-0.4) 02/01/20 07:07 Baso # (Auto) 0.0 K/mm3 (0.0-0.1) 02/01/20 07:07 Seg Neutrophils % 67.5 % (40.0-70.0) 02/01/20 07:07 Seg Neutrophils # 7.0 K/mm3 (1.8-7.7) 02/01/20 07:07 PT 13.1 Sec. (12.2-14.9) 02/01/20 07:07 INR 0.98 (0.87-1.13) 02/01/20 07:07 APTT 25.6 Sec. (24.2-36.6) 01/31/20 01:21 Heparin Anti-Xa Level 0.11 U.I./ml (0.3-0.7) L 02/01/20 07:07 Sodium 138 mmol/L (137-145) 02/01/20 07:07 Potassium 4.3 mmol/L (3.6-5.0) 02/01/20 07:07 Chloride 101.4 mmol/L (98-107) 02/01/20 07:07 Carbon Dioxide 29 mmol/L (22-30) 02/01/20 07:07 Anion Gap 12 mmol/L 02/01/20 07:07 BUN 15 mg/dL (9-20) 02/01/20 07:07 Creatinine 0.8 mg/dL (0.8-1.3) 02/01/20 07:07 Estimated GFR > 60 ml/min 02/01/20 07:07 BUN/Creatinine Ratio 19 % 02/01/20 07:07 Glucose 97 mg/dL (75-100) 02/01/20 07:07 Calcium 9.2 mg/dL (8.4-10.2) 02/01/20 07:07 Troponin T 0.751 ng/mL (0.00-0.029) H* D 02/01/20 07:07 Triglycerides 81 mg/dL (2-149) 01/31/20 08:01 Cholesterol 167 mg/dL (50-199) 01/31/20 08:01 LDL Cholesterol Direct 118 mg/dL (50-130) 01/31/20 08:01 HDL Cholesterol 33 mg/dL (40-59) L 01/31/20 08:01 Cholesterol/HDL Ratio 5.06 % 01/31/20 08:01 - Diagnostic Impressions Diagnostic Impressions: Echocardiogram 01/31/20 03:46 Transthoracic Echocardiogram Indication: Chest Pain BP: 141/89 HR: 95 Conclusions *Global left ventricular systolic function is normal. *The estimated ejection fraction is 60-65%. *Global left ventricular systolic function is normal. *The estimated ejection fraction is 60-65%. *Mild concentric left ventricular hypertrophy is observed. *There is an E to A reversal in the mitral valve flow pattern suggestive of diastolic dysfunction. *The right ventricular chamber size and systolic function are within normal limits. *There is no evidence of aortic regurgitation. *There is no evidence of mitral regurgitation. *There is trace tricuspid regurgitation. Findings Left Ventricle: Mild concentric left ventricular hypertrophy is observed. Global left ventricular systolic function is normal. The estimated ejection fraction is 60-65%. There is an E to A reversal in the mitral valve flow pattern suggestive of diastolic dysfunction. Left Atrium: The left atrial chamber size is normal. Right Ventricle: The right ventricular chamber size and systolic function are within normal limits. The right ventricular cavity size is normal. Right Atrium: The right atrial cavity size is normal. Aortic Valve: The aortic valve is trileaflet. There is no evidence of aortic regurgitation. There is no evidence of aortic stenosis. Mitral Valve: The mitral valve leaflets appear normal. There is no evidence of mitral regurgitation. Tricuspid Valve: The tricuspid valve leaflets are normal. There is trace tricuspid regurgitation. Pulmonic Valve: The pulmonic valve appears normal. Pericardium: There is no pericardial effusion. Aorta: The aorta appears normal. Venous: The inferior vena cava appears normal in size. Measurements Chambers 2D Name Value Normal Range IVSd (2D) 1.2 cm (0.6 - 1.1) LVPWd (2D) 1.28 cm (0.6 - 1.1) LVIDd (2D) 5.69 cm (3.7 - 5.6) LVIDs (2D) 3.66 cm (2 - 3.8) LV FS (2D) 35.7 % - EF Teichholz (2D) 64.5 % - Ao root diameter (2D) 2.87 cm (2 - 3.7) Volumes/Mass Name Value Normal Range LA ESV SP 4CH (A/L) 36.75 ml - LA ESV SP 2CH (A/L) 53.22 ml - LA ESV BP (A/L) 46.31 ml - LA ESV BP (A/L) index 18.38 ml/m2 - LA ESV SP 4CH (MOD) 34.83 ml - LA ESV SP 2CH (MOD) 51.52 ml - LA ESV BP (MOD) 44.32 ml - LA ESV BP (MOD) index 17.59 ml/m2 - LV EDV SP 4CH (MOD) 120.2 ml - LV ESV SP 4CH (MOD) 38.9 ml - EF SP 4CH (MOD) 67.64 % - LV EDV SP 2CH (MOD) 78.71 ml - LV ESV SP 2CH (MOD) 33.96 ml - EF SP 2CH (MOD) 56.85 % - LV EDV BP 95.62 ml - LV ESV BP 37.47 ml - BP EF (MOD) 60.82 % - Diastolic/Systolic Function Name Value Normal Range MV E-wave Vmax 0.62 m/sec - MV deceleration time 230.68 msec - MV A-wave Vmax 0.98 m/sec - MV E:A ratio 0.63 ratio - Aortic Valve Name Value Normal Range AV Vmax 2.45 m/sec - AV VTI 38.43 cm - AV peak gradient 24.07 mmHg - AV mean gradient 8.41 mmHg - LVOT diameter 2.12 cm - LVOT Vmax 1.47 m/sec - LVOT VTI 26.55 cm - LVOT peak gradient 8.65 mmHg - LVOT mean gradient 4.68 mmHg - SV LVOT 93.79 ml - HUGO (continuity Vmax) 2.12 cm2 - HUGO (continuity VTI) 2.44 cm2 - Ascending Ao 2.93 cm - Pulmonic Valve/Qp:Qs Name Value Normal Range PV Vmax 1.37 m/sec - PV VTI 23 cm - PV peak gradient 7.47 mmHg - PV mean gradient 3.42 mmHg - RVOT Vmax 1.22 m/sec - RVOT VTI 21.1 cm - RVOT peak gradient 5.96 mmHg - [place]gar[place]/IV: Voiding Method Urinal IV Catheter Type [Right Hand] INT / Saline Lock Active Medications - Current Medications Current Medications: Generic Name Dose Route Start Last Admin Trade Name Freq PRN Reason Stop Dose Admin Acetaminophen 650 mg 01/31/20 03:41 Tylenol PO Q6H PRN Pain, Mild (1-3) Hydrocodone Bitart/Acetaminophen 1 each 01/31/20 12:00 02/01/20 08:24 [place] 5/325 PO 1 each Q4H PRN Administration Pain, Moderate (4-6) Amlodipine Besylate 5 mg 02/01/20 10:00 02/01/20 09:42 Amlodipine PO 5 mg DAILY BREANNA Administration Apixaban 5 mg 02/01/20 12:00 Eliquis PO Q12HR BREANNA Protocol Aspirin 81 mg 02/01/20 10:00 02/01/20 09:41 Baby Aspirin PO 81 mg QDAY BREANNA Administration Atorvastatin Calcium 80 mg 01/31/20 22:00 01/31/20 21:19 Lipitor PO 80 mg QHS BREANNA Administration Clopidogrel Bisulfate 75 mg 02/01/20 10:00 02/01/20 09:41 Plavix PO 75 mg QDAY BREANNA Administration Cyclobenzaprine HCl 10 mg 01/31/20 14:54 Flexeril PO TID PRN Muscle Spasm Isosorbide Mononitrate 30 mg 02/01/20 10:00 02/01/20 11:01 Imdur PO 30 mg DAILY BREANNA Administration Magnesium Hydroxide 30 ml 01/31/20 03:41 Milk Of Magnesia PO Q4H PRN Constipation Metoprolol Tartrate 50 mg 02/01/20 10:00 02/01/20 09:43 Metoprolol PO 50 mg TID BREANNA Administration Morphine Sulfate 2 mg 01/31/20 03:41 01/31/20 17:09 Morphine IV 2 mg Q5MIN PRN Administration Chest Pain Ondansetron HCl 4 mg 01/31/20 15:49 01/31/20 16:07 Zofran IV 4 mg Q6H PRN Administration Nausea And Vomiting Sodium Chloride 10 ml 01/31/20 10:00 02/01/20 09:42 Sodium Chloride Flush Syringe 10 Ml IV 10 ml BID BREANNA Administration Sodium Chloride 10 ml 01/31/20 03:41 Sodium Chloride Flush Syringe 10 Ml IV PRN PRN LINE FLUSH Tramadol HCl 50 mg 01/31/20 12:00 Ultram PO Q4H PRN Pain, Mild (1-3) Zolpidem Tartrate 5 mg 01/31/20 21:06 01/31/20 21:19 Ambien PO 5 mg QHS PRN Administration Sleep Nutrition/Malnutrition Assess - Dietary Evaluation Nutrition/Malnutrition Findings: Nutrition Notes Start: 01/31/20 14:51 Freq: Status: Active Protocol: Document 01/31/20 14:51 (Rec: 01/31/20 14:54 [id number]) Co-Sign 01/31/20 14:51 LP Nutrition Notes Need for Assessment generated from: MD Order Initial or Follow up Brief Note Current Diagnosis Coronary Artery Disease, Diabetes,Hypertension Current Diet Cardiac Subjective/Other Information MD consult for diet edu. Pt on hold in ED. Nutrition Intervention Follow-Up By: 02/02/20 Additional Comments FU for diet edu
--- NOTE | 2020-02-01 13:02 | Consultation ---
History of Present Illness History of present illness: chest pain Pt with hx of DM, HTN tobacco abuse and cad spLHC cath in the past w stent plac ement who is admitted withshortness of chest pain. Pt since admission has had [facility] w patent stent. Now feels better Past History Past Medical History: acute [place], CAD, diabetes (Diet controlled), hypertension, other (PVD) Past Surgical History: total knee replacement (Left knee), PTCA, Other (C6,7 surgery) Social history: smoking (Current daily smoker) Family history: no significant family history Medications and Allergies Allergies Allergy/AdvReac Type Severity Reaction Status Date / Time No Known Allergies Allergy Verified 01/31/20 11:50 Home Medications Medication Instructions Recorded Confirmed Last Taken Type Acetaminophen [Acetaminophen TAB] 1 tab PO Q4H PRN #10 tablet 02/23/19 01/31/20 Unknown Rx Metoprolol [Lopressor TAB] 50 mg PO BID #60 tablet 02/23/19 01/31/20 Unknown Rx Nitroglycerin [Nitrostat] 0.4 mg SL .Q5MIN PRN #15 tablet 02/23/19 01/31/20 Unknown Rx Apixaban [Eliquis] 5 mg PO DAILY 01/31/20 01/31/20 Unknown History Cyclobenzaprine [Flexeril] 10 mg PO TID PRN 01/31/20 01/31/20 Unknown History Losartan/Hydrochlorothiazide 1 each PO DAILY 01/31/20 01/31/20 Unknown History [Losartan-Hctz 100-25 mg Tab] Pramipexole [Mirapex] 0.125 mg PO TID 01/31/20 01/31/20 Unknown History amLODIPine [Norvasc] 5 mg PO DAILY 01/31/20 01/31/20 Unknown History traMADoL [Ultram] 50 mg PO Q6HR PRN 01/31/20 01/31/20 Unknown History Active Meds: Active Medications Acetaminophen (Tylenol) 650 mg PO Q6H PRN PRN Reason: Pain, Mild (1-3) Hydrocodone Bitart/Acetaminophen ([place] 5/325) 1 each PO Q4H PRN PRN Reason: Pain, Moderate (4-6) Last Admin: 02/01/20 08:24 Dose: 1 each Documented by: Amlodipine Besylate (Amlodipine) 5 mg PO DAILY [facility] Last Admin: 02/01/20 09:42 Dose: 5 mg Documented by: Apixaban (Eliquis) 5 mg PO Q12HR [facility]; Protocol Aspirin (Baby Aspirin) 81 mg PO QDAY [facility] Last Admin: 02/01/20 09:41 Dose: 81 mg Documented by: Atorvastatin Calcium (Lipitor) 80 mg PO QHS [facility] Last Admin: 01/31/20 21:19 Dose: 80 mg Documented by: Clopidogrel Bisulfate (Plavix) 75 mg PO QDAY [facility] Last Admin: 02/01/20 09:41 Dose: 75 mg Documented by: Cyclobenzaprine HCl (Flexeril) 10 mg PO TID PRN PRN Reason: Muscle Spasm Isosorbide Mononitrate (Imdur) 30 mg PO DAILY [facility] Last Admin: 02/01/20 11:01 Dose: 30 mg Documented by: Magnesium Hydroxide (Milk Of Magnesia) 30 ml PO Q4H PRN PRN Reason: Constipation Metoprolol Tartrate (Metoprolol) 50 mg PO TID [facility] Last Admin: 02/01/20 09:43 Dose: 50 mg Documented by: Morphine Sulfate (Morphine) 2 mg IV Q5MIN PRN PRN Reason: Chest Pain Last Admin: 01/31/20 17:09 Dose: 2 mg Documented by: Ondansetron HCl (Zofran) 4 mg IV Q6H PRN PRN Reason: Nausea And Vomiting Last Admin: 01/31/20 16:07 Dose: 4 mg Documented by: Sodium Chloride (Sodium Chloride Flush Syringe 10 Ml) 10 ml IV BID [facility] Last Admin: 02/01/20 09:42 Dose: 10 ml Documented by: Sodium Chloride (Sodium Chloride Flush Syringe 10 Ml) 10 ml IV PRN PRN PRN Reason: LINE FLUSH Tramadol HCl (Ultram) 50 mg PO Q4H PRN PRN Reason: Pain, Mild (1-3) Zolpidem Tartrate (Ambien) 5 mg PO QHS PRN PRN Reason: Sleep Last Admin: 01/31/20 21:19 Dose: 5 mg Documented by: Physical Examination Vital signs: Vital Signs Temp Pulse Resp BP Pulse Ox 97.4 F L 76 16 169/110 97 01/31/20 00:41 01/31/20 00:41 01/31/20 00:41 01/31/20 00:41 01/31/20 00:41 General appearance: no acute distress, alert Eyes: non-icteric ENT: oropharynx moist Neck: supple Effort: normal Ascultation: Bilateral: clear Gastrointestinal: normoactive bowel sounds, soft, non-tender, non-distended Integumentary: normal Extremities: no cyanosis normal mental status Results - Laboratory Findings CBC and BMP: 02/01/20 07:07 02/01/20 07:07 PT/INR, D-dimer PT 13.1 Sec. (12.2-14.9) 02/01/20 07:07 INR 0.98 (0.87-1.13) 02/01/20 07:07 Abnormal lab findings: Abnormal Labs 01/31/20 01/31/20 01/31/20 00:51 00:51 08:01 Lymph % (Auto) 47.7 H [place] % (Auto) 9.9 H [place] # (Auto) Seg Neutrophils % 39.2 L Heparin Anti-Xa Level Carbon Dioxide 21 L Creatinine Glucose 115 H Troponin T 0.067 H D HDL Cholesterol 01/31/20 01/31/20 01/31/20 08:01 08:01 08:01 Lymph % (Auto) [place] % (Auto) [place] # (Auto) Seg Neutrophils % 82.5 H Heparin Anti-Xa Level Carbon Dioxide Creatinine 0.7 L Glucose 130 H Troponin T HDL Cholesterol 33 L 01/31/20 01/31/20 01/31/20 08:01 09:14 23:23 Lymph % (Auto) [place] % (Auto) [place] # (Auto) Seg Neutrophils % Heparin Anti-Xa Level 0.23 L 0.17 L Carbon Dioxide Creatinine Glucose Troponin T 0.057 H HDL Cholesterol 02/01/20 02/01/20 02/01/20 07:07 07:07 07:07 Lymph % (Auto) [place] % (Auto) 10.3 H [place] # (Auto) 1.1 H Seg Neutrophils % Heparin Anti-Xa Level 0.11 L Carbon Dioxide Creatinine Glucose Troponin T 0.751 H* D HDL Cholesterol - Diagnostic Findings Chest x-ray: report reviewed, image reviewed Assessment and Plan - Patient Problems (1) Angina at rest Current Visit: Yes Status: Acute (2) Hypertension Current Visit: Yes Status: Acute (3) Stented coronary artery Current Visit: Yes Status: Chronic (4) Tobacco use Current Visit: Yes Status: Chronic (5) Acute chest pain Current Visit: No Status: Acute (6) CAD (coronary artery disease) Current Visit: No Status: Chronic (7) Diabetes Current Visit: No Status: Chronic (8) HTN (hypertension) Current Visit: No Status: Chronic
[2020-02-01] MEDS: APIXABAN 5 MG TAB PO SCH ×2 (13:10→22:25)
[2020-02-01] MEDS: CYCLOBENZAPRINE 10 MG TAB PO PRN (22:25)
[2020-02-02 06:10] LABS: Hematocrit 39.6 % (35.5-45.6); Hemoglobin 13.1 gm/dl (11.8-15.2)
[2020-02-02 08:25] VITALS: BP 153/93
[2020-02-02] MEDS: HYDROcodone/ACETAMINOPHEN 5-325 MG TAB PO PRN ×2 (08:39→12:29)
[2020-02-02] MEDS: CYCLOBENZAPRINE 10 MG TAB PO PRN (08:39)
--- NOTE | 2020-02-02 09:01 | Discharge Summary ---
Providers - Providers Date of Admission: 02/01/20 09:43 Attending physician: RENARD PORTILLO MD 01/31/20 Consult to Cardiac Rehabilitation [CONS] Routine Reason For Exam: Phase I 01/31/20 02:11 Consult to Physician [CONS] Urgent Comment: Dr. Post spoke with Dr. Pablo @ 0209 Consulting Provider: BRAYDEN BROOKS Physician Instructions: Reason For Exam: chest pain, stent x 2 01/31/20 03:43 Consult to Dietitian/Nutrition [CONS] Routine Physician Instructions: Reason For Exam: Reason for Consult: Diet education 01/31/20 04:25 Consult to Physician [CONS] Routine Comment: Consulting Provider: PATI ULLOA Physician Instructions: Reason For Exam: CCU ADMISSION, CHEST PAIN H/O CAD 01/31/20 12:00 Consult to Cardiac Rehabilitation [CONS] Routine Reason For Exam: Cardiac Rehab Evaluation [facility] Reason for admission: NSTEMI Condition: Stable Hospital course: 50-year-old male with known history of hypertension, coronary artery disease with stent placement in the past, diet-controlled diabetes mellitus, arthritis and tobacco dependence presented to the emergency room today complaining of substernal chest pain while watching TV at home this evening. He took some sublingual nitroglycerin with transient improvement in the chest pain. He later continued to have chest pain. He had some diaphoresis which has since resolved Patient had some nausea with an episode of vomiting upon arrival in the emergency room. Patient has known history of ST elevation [place] in 2017 during which she had RCA occlusion with stent placement. He also had an NSTEMI in 2019. Patient's straight line edger is affiliated with [facility]. Patient continues to smoke tobacco daily and planning to quit. Evaluation in the emergency room today has not revealed any significant abnormality on EKG, chest x-ray and also troponin levels were negative. Patient has been placed on heparin and nitroglycerin drip and to be closely monitored in the intensive care unit. S/p [facility] yesterday - lt main patent, lad mid stent patent, small diagonal 1 100%, lcx patent om2 patent, rca proximal and mid 50%, compared to [facility] last year diagonal 1 is occluded now and normal lv function. Cont medical management. Eliquis in setting of paroxysmal AFib. NSVT noted overnight - increase lopressor dosage. - Patient Problems (1) NSTEMI (non-ST elevated myocardial infarction) Current Visit: Yes Status: Acute (2) CAD (coronary artery disease) Current Visit: Yes Status: Chronic (3) Stented coronary artery Current Visit: Yes Status: Chronic (4) HTN Current Visit: Yes Status: Chronic (5) Paroxysmal atrial fibrillation Current Visit: Yes Status: Chronic (6) Diabetes Current Visit: Yes Status: Chronic (7) Tobacco use Current Visit: Yes Status: Chronic (8) PVD (peripheral vascular disease) Current Visit: Yes Status: Chronic (9) Hyperlipidemia Current Visit: Yes Status: Chronic (10) NSVT Current Visit: Yes Status: Acute (11) Acute Diastolic Heart Failure Current Visit: Yes Status: Acute (12) SIRS without organ dysfunction and no sepsis Current Visit: Yes Status: Acute Disposition: DC-30 STILL A PATIENT Time spent for discharge: 35 mins Core Measure Documentation - Palliative Care Palliative Care/ Comfort Measures: Not Applicable - Core Measures Any of the following diagnoses?: acute [place] - Acute [place] Discharge Requirements Aspirin at discharge: Yes NATO/ARB for LVSD if EF <40%: Yes Beta tierney at discharge: Yes Statin for LDL = or >100 mg/dl on DC: Yes Exam - Physical Exam Narrative exam: VITAL SIGNS: Reviewed. GENERAL: The patient appears normally developed, morbidly obese vital signs as documented. HEAD: No signs of head trauma. EYES: Pupils are equal. Extraocular motions intact. EARS: Hearing grossly intact. MOUTH: Oropharynx is normal. NECK: No adenopathy, no JVD. CHEST: Chest with clear breath sounds bilaterally. No wheezes, rales, or rhonchi. CARDIAC: Regular rate and rhythm. S1 and S2, without murmurs, gallops, or rubs. VASCULAR: No Edema. Peripheral pulses normal and equal in all extremities. ABDOMEN: Soft, non tender and non distended. No rebound or guarding, and no masses palpated. Bowel Sounds normal. MUSCULOSKELETAL: Good range of motion of all major joints. Extremities without clubbing, cyanosis or edema. NEUROLOGIC EXAM: Alert and oriented x 3 No focal sensory or strength deficits. Speech normal. Follows commands. PSYCHIATRIC: Mood normal. SKIN: detail exam as documented in skin assessment - Constitutional Vitals: Temp Pulse Resp BP Pulse Ox 98.6 F 81 20 153/93 98 02/02/20 03:25 02/02/20 08:11 02/02/20 08:11 02/02/20 08:11 02/02/20 08:11 Plan Activity: advance as tolerated, fall precautions Diet: low fat, low salt Special Instructions: smoking cessation Follow up with: SANDIE CUNHAHILDEBRAN MD DHARA [Primary Care Provider] - 3-5 Days SHABBIR FRAGOSO MD [Staff Physician] - 7 Days Forms: [facility] PCI D/C Instructions, Discharge Signature Page Prescriptions: AtorvaSTATin [Lipitor] 80 mg PO QHS #60 tablet amLODIPine 5 mg PO DAILY #30 Losartan [Cozaar] 50 mg PO QDAY #30 tablet Apixaban [Eliquis] 5 mg PO Q12HR #60 tablet Nicotine [Habitrol] 21 mg TD DAILY #30 patch ISOSORBIDE MONOnitrate [Imdur ER] 30 mg PO DAILY #30 tablet Metoprolol [Lopressor TAB] 75 mg PO BID #60 tablet Nitroglycerin [Nitrostat] 0.4 mg SL .Q5MIN PRN #15 tablet PRN Reason: Chest Pain Clopidogrel [Plavix] 75 mg PO QDAY #30 tablet traMADoL [Ultram 50 MG tab] 50 mg PO Q6HR PRN #14 PRN Reason: Pain
[2020-02-02] MEDS ORDERED: METOPROLOL TARTRATE 50 MG TAB PO SCH (10:00)
[2020-02-02] MEDS ORDERED: LOSARTAN 50 MG TAB PO SCH (10:00)
[2020-02-02] MEDS: amLODIPine 5 MG TAB PO SCH (10:25)
[2020-02-02] MEDS: ASPIRIN 81 MG TAB CHEW PO SCH (10:25)
[2020-02-02] MEDS: APIXABAN 5 MG TAB PO SCH (10:25)
[2020-02-02] MEDS: CLOPIDOGREL 75 MG TAB PO SCH (10:26)
--- NOTE | 2020-02-02 10:27 | Progress Note ---
Assessment and Plan Currently stable cardiac status. Cont present cardiac management. At discharge, recommend Toprol XL 75mg daily. Cont all other present cardiac management. Follow up in our [place] office with Dr. Fall on 02/14/2020 @ 11:00AM. The patient has been seen in conjunction with Dr. Fall who agrees with the assessment and plan of care. - Patient Problems (1) NSTEMI (non-ST elevated myocardial infarction) Current Visit: Yes Status: Acute (2) CAD (coronary artery disease) Current Visit: Yes Status: Chronic (3) Stented coronary artery Current Visit: Yes Status: Chronic (4) HTN Current Visit: Yes Status: Chronic (5) Paroxysmal atrial fibrillation Current Visit: Yes Status: Chronic (6) Diabetes Current Visit: Yes Status: Chronic (7) Tobacco use Current Visit: Yes Status: Chronic (8) PVD (peripheral vascular disease) Current Visit: Yes Status: Chronic (9) Hyperlipidemia Current Visit: Yes Status: Chronic (10) NSVT Current Visit: Yes Status: Acute Subjective Date of service: 02/02/20 Principal diagnosis: NSTEMI Interval history: pt resting in bed, no current complaints. in SR on tele HR 80s, one 4 beat run NSVT noted overnight, pt asymptomatic. Objective Last Vital Signs Temp 98.6 F 02/02/20 03:25 Pulse 81 02/02/20 08:11 Resp 20 02/02/20 08:11 BP 153/93 02/02/20 08:11 Pulse Ox 98 02/02/20 08:11 - Physical Examination General: No Apparent Distress HEENT: Positive: PERRL, Normocephaly, Mucus Membranes Moist Neck: Positive: neck supple, trachea midline Cardiac: Positive: Reg Rate and Rhythm, S1/S2 Lungs: Positive: Decreased Breath Sounds Neuro: Positive: Grossly Intact Abdomen: Negative: Tender Skin: Negative: Rash Incision: Cardiac Cath Site (right radial LHC site c/d/i, no bleeding or hematoma) Musculoskeletal: No Pain Extremities: Absent: edema - Labs and Meds CBC 02/02/20 Range/Units 05:24 Hgb 13.1 (11.8-15.2) gm/dl Hct 39.6 (35.5-45.6) % Plt Count 242 (140-440) K/mm3 - Imaging and Cardiology EKG: report reviewed, image reviewed Echo: report reviewed (02/2019 showed EF 55-60%, mild LVH. ) Cardiac cath: report reviewed ([facility] done 09/2018 showed 70-80% mid LAD lesion with with ENRIKE placement, patent RCA stent with mod mid RCA disease, ramus branch with very severe lesion in very small caliber vessel. 11/2016 PCI to RCA with BMS) - EKG Sinus rhythms and dysrhythmias: sinus rhythm
[2020-02-02] MEDS: METOPROLOL TARTRATE 50 MG TAB PO SCH (10:28)
[2020-02-02 11:25] LABS: BUN/Creatinine Ratio 14; Blood Urea Nitrogen 11 mg/dL (9-20); Calcium 9.6 mg/dL (8.4-10.2); Hemolysis Index 8
== END 2020-02-02 12:35 | disposition home or self-care (01) | DRG 280 ==
LOC: ED 00:38 → CC1 02:41 → 4A 12:09 → OBSVTOIN 02-01 09:43
PROVIDERS: ADMIT Internal Medicine Geriatric Medicine; ATTEND Internal Medicine
PROC: 4A023N7 Measurement of Cardiac Sampling and Pressure, Left Heart, Percutaneous Approach (ICD-10-PCS; principal; 2020-01-31)
PROC: B211YZZ Fluoroscopy of Multiple Coronary Arteries using Other Contrast (ICD-10-PCS; 2020-01-31)
PROC: B215YZZ Fluoroscopy of Left Heart using Other Contrast (ICD-10-PCS; 2020-01-31)
DX: I21.4 Non-ST elevation (NSTEMI) myocardial infarction (principal); I50.31 Acute diastolic (congestive) heart failure; R65.10 Systemic inflammatory response syndrome (SIRS) of non-infectious origin without acute organ dysfunction; I25.10 Atherosclerotic heart disease of native coronary artery without angina pectoris; I11.0 Hypertensive heart disease with heart failure; I48.0 Paroxysmal atrial fibrillation; E11.51 Type 2 diabetes mellitus with diabetic peripheral angiopathy without gangrene; E78.5 Hyperlipidemia, unspecified; I47.1 Supraventricular tachycardia; G43.909 Migraine, unspecified, not intractable, without status migrainosus; M19.90 Unspecified osteoarthritis, unspecified site; Z96.652 Presence of left artificial knee joint; F17.200 Nicotine dependence, unspecified, uncomplicated; Z95.5 Presence of coronary angioplasty implant and graft; I25.2 Old myocardial infarction; Z71.6 Tobacco abuse counseling; Z79.899 Other long term (current) drug therapy; Z88.6 Allergy status to analgesic agent
CPT/HCPCS: 36415; 71045; 80048; 80061; 84484; 85014; 85018; 85025; 85049; 85520; 85610; 85730; 93005; 93306; 93458; 96365; 96375; 99406; G0378; A9270-GY; C1894; J1644; J2250; J2270; J2405; J3010; J7040; Q0177; Q9967